=== PATIENT | male | born 1930 | race Caucasian/White ===

== ENCOUNTER 2016-04-15 06:45 | Day surgery (SDC) | payer MEDICARE, BC ==
[~2016-04-15 06:45] MED LIST: Dextrose 5%-Lactated Ringers 1,000 ML IV SCH
[2016-04-15] MEDS ORDERED: fentaNYL 100 MCG/2 ML SDV ONE (07:26)
[2016-04-15] MEDS ORDERED: Propofol 200 MG/20 ML SDV ONE (07:26)
[2016-04-15] MEDS ORDERED: Glycopyrrolate 0.2 MG/ML 2 ML SYRINGE IVPUSH ONE (08:15)
[2016-04-15 10:10] VITALS: BP 151/88
--- NOTE | 2016-04-23 10:58 | OR ---
DATE OF PROCEDURE: 04/15/2016 PREOPERATIVE DIAGNOSIS: Dysphagia likely related to stricturing at esophagogastric junction. POSTOPERATIVE DIAGNOSES: 1. 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 2. Moderate antral gastritis. OPERATIVE PROCEDURES: Esophagogastroduodenoscopy with; 1. Biopsies of antrum for CLOtest (87210). 2. Dilation of distal esophageal stricture (86066). ANESTHESIA: IV sedation. INDICATION FOR PROCEDURE: This is an 86-year-old male, presenting with some worsening dysphagia referable to his distal esophagus. He has had dilations of strictures at the EG junction previously and feels that he has developed this problem once again. He presently is on omeprazole 40 mg a day. Plan is to proceed with an upper GI endoscopy with biopsies and/or dilation as indicated. Potential risks including bleeding and perforation were discussed, and the patient wishes to proceed. DETAILS OF PROCEDURE: The patient was taken to the operating room and placed in a left lateral decubitus position. IV sedation was administered, after which the upper GI endoscope was passed orally through the length of the esophagus and into the stomach with retroflexion view of the fundus, and thereafter through the pyloric channel, and into the proximal duodenum. Findings included normal upper esophagus and esophageal body. At the EG junction, the patient had a bland stricture. This was a thin circumferential band of whitish tissue, not at all concerning for a neoplasia. The 1-cm gastroscope was able to be passed through this area without much in the way of extra diameter. Within the stomach, there was some moderate gastritis in the antrum without erosions or ulcers. The duodenum to the junction of the third and fourth portion was unremarkable. At this point, biopsies were obtained from the antrum and sent for CLOtest for H. pylori. The scope was then withdrawn, after leaving a guidewire in the stomach. Using fluoroscopic surveillance, the esophageal stricture was then dilated serially with Savary dilators of 36-Bruneian, 39-Bruneian, and 45-Bruneian size. At the 45-Bruneian size, the amount of resistance was such that we felt it would be unsafe to dilate above that level. The dilator and guidewire were then removed, and the procedure concluded. There were no evident complications. The patient's daughter was concerned about some increasing dementia. On her own reading, she has noted that PPIs are occasionally associated with that, and she would like to try switching to some medication other than a proton pump inhibitor for his reflux medication. We will, therefore, give him Zantac 300 mg q.a.m. He is instructed to contact myself or his personal physician should the reflux symptoms become worse on that otherwise somewhat low-intensity medical management. Otherwise, he and his daughter were instructed to contact me, if and when he develops problems with recurrent symptoms of stricturing. Taras Sales MD /[id number]
== END 2016-04-15 10:13 | disposition home or self-care (01) ==
LOC: JP.SDS 06:45 → EEVIPCON 11:00
PROVIDERS: ATTEND Surgery
DX: K22.2 Esophageal obstruction (principal); R13.10 Dysphagia, unspecified; K29.70 Gastritis, unspecified, without bleeding; Z86.711 Personal history of pulmonary embolism; Z79.01 Long term (current) use of anticoagulants; Z86.010 Personal history of colon polyps; N18.3 Chronic kidney disease, stage 3 (moderate); E78.5 Hyperlipidemia, unspecified; E03.9 Hypothyroidism, unspecified; G31.84 Mild cognitive impairment of uncertain or unknown etiology; N52.9 Male erectile dysfunction, unspecified; Z79.899 Other long term (current) drug therapy
CPT/HCPCS: 36415; 43239; 43248; 85610; 87081; J2704; J3010; J7042

== ENCOUNTER → 2017-06-26 | Day surgery (SDC) | payer MEDICARE, BC ==
[~2017-06-26] MED LIST changes: -Dextrose 5%-Lactated Ringers 1,000 ML IV SCH; +Sodium Chloride 0.9% 10 ML Syringe FLUSH PRN
--- NOTE | 2017-06-26 11:01 | OR ---
DATE OF PROCEDURE: 06/26/2017 POSTOPERATIVE CARE: Postoperative care will be provided mainly at the [address] [place] [address] [facility] in conjunction with [facility]. PREOPERATIVE DIAGNOSIS: Cataract, right eye. POSTOPERATIVE DIAGNOSIS: Cataract, right eye. PROCEDURE: Cataract extraction, phacoemulsification with intraocular lens placement, right eye. ANESTHESIA: Topical and intracameral. ESTIMATED BLOOD LOSS: Minimal. COMPLICATIONS: None. PATHOLOGY SPECIMENS: None. SURGICAL FINDINGS: None. INDICATION FOR PROCEDURE: The patient is an 87-year-old male with history of a visually significant cataract in the right eye, which interfered with activities of daily living. This consisted of a nuclear sclerosis cataract. Following careful discussion of the risks, benefits and alternatives to cataract extraction with intraocular lens placement including blindness and , the patient elected to proceed, and informed, written consent was obtained prior to the procedure. DESCRIPTION OF THE PROCEDURE: The patient was previously identified, and a vida placed above the right eye. All sources, including the patient, indicated that the right eye was the correct eye. The patient was subsequently taken to the operating room where standard monitors were applied. The patient was then prepped and draped in the usual sterile fashion for ophthalmic surgery. Attention was first directed at the 12 o'clock position where a paracentesis port was fashioned. Shugar solution followed by Viscoat was instilled into the eye. Attention was then directed to the 8:30 position where a triplanar incision was made in a near-clear manner using a keratome. A continuous capsulorrhexis was then made using a combination of the cystotome and Utrata forceps. Hydrodissection was achieved using a balanced salt solution, and the lens rotated nicely. Phacoemulsification was then done using a modified [id number] technique without complication. Phaco time was 25.21 CDE. The remaining cortex was removed using the irrigation/aspiration handpiece. Provisc was then instilled into the eye. A Technis lens, model [id number], at 20.5 diopters was then placed in the capsular bag using an [place] injector. The remaining viscoelastic was removed using the irrigation/aspiration forceps. All wounds were then checked and found to be watertight. The lid speculum and drapes were removed. Maxitrol ointment was placed in the patient's right eye, and the eye was shielded. The patient tolerated the procedure well. The patient was instructed to follow up tomorrow. All needle and sponge counts were correct at the end of the procedure. Isabella Arredondo MD /[id number]
[2017-06-26 11:05] VITALS: BP 164/94
== END ==
LOC: JP.SDS 08:01
PROVIDERS: ATTEND Ophthalmology
DX: H25.11 Age-related nuclear cataract, right eye (principal); I82.409 Acute embolism and thrombosis of unspecified deep veins of unspecified lower extremity; K21.9 Gastro-esophageal reflux disease without esophagitis; N18.9 Chronic kidney disease, unspecified; E03.9 Hypothyroidism, unspecified; Z88.1 Allergy status to other antibiotic agents; Z88.2 Allergy status to sulfonamides; Z88.5 Allergy status to narcotic agent; Z88.8 Allergy status to other drugs, medicaments and biological substances
CPT/HCPCS: 66984; J7050; V2632

== ENCOUNTER 2018-09-05 19:04 | Emergency (ER) | payer MEDICARE, BC ==
--- NOTE | 2018-09-05 19:32 | EDM.PDOC ---
ED HPI GENERAL MEDICAL PROBLEM - General Chief Complaint: Neuro Symptoms/Deficits Stated Complaint: WEAKNESS Time Seen by Provider: 09/05/18 19:05 Source of Information: Reports: Patient - History of Present Illness INITIAL COMMENTS - FREE TEXT/NARRATIVE: 88-year-old with history of colon cancer, DVT on Coumadin, possible atrial fibrillation presents with concerns of acute onset left leg weakness. He reports that at 5:25 this evening he sat down to have dinner. At approximately 5 :40 PM He attempted to stand up from the table and noted that his left leg was weak and not "cooperating". His also notes some mild confusion at this time and listing to the left when he stood. He is no history of prior symptoms in the past. No history of stroke or [employer] disease. He does take Coumadin for DVT. Reports a history of palpitations, he is unsure if he's been diagnosed with A. fib. He denies any headache, no vision changes. - Related Data Allergies Allergy/AdvReac Type Severity Reaction Status Date / Time glycopyrrolate [From Rodolfo] Allergy Other Verified 09/05/18 19:19 Sulfa (Sulfonamide Allergy Cannot Verified 09/05/18 19:19 Antibiotics) Remember ciprofloxacin AdvReac Stomach Verified 09/05/18 19:19 Upset doxycycline AdvReac Stomach Verified 09/05/18 19:19 Upset Home Meds: Home Meds Omeprazole 20 tab PO DAILY 09/20/13 [History] Vardenafil HCl [Levitra] 20 mg PO DAILY PRN 09/20/13 [History] Warfarin Sliding Scale [Coumadin Sliding Scale] 2.5 - 5 mg PO DAILY 09/20/13 [ History] Levothyroxine [Synthroid] 50 mcg PO DAILY 04/11/16 [History] Cyanocobalamin (Vitamin B-12) [Vitamin B-12] 5,000 mcg PO DAILY 04/15/16 [ History] Past Medical History HEENT History: Reports: Impaired Vision Other HEENT History: wears glasses Cardiovascular History: Reports: Blood Clots/VTE/DVT Respiratory History: Reports: PE Gastrointestinal History: Reports: Colon Polyp, GERD, GI Bleed Genitourinary History: Reports: Prostate Disorder, Renal Disease Neurological History: Reports: Concussion Psychiatric History: Reports: Dementia Endocrine/Metabolic History: Reports: Hypothyroidism Hematologic History: Reports: Anticoagulation Therapy, Blood Transfusion(s) - Infectious Disease History Infectious Disease History: Reports: Chicken Pox, Measles - Past Surgical History HEENT Surgical History: Reports: Cataract Surgery, Oral Surgery Cardiovascular Surgical History: Reports: None Respiratory Surgical History: Reports: None GI Surgical History: Reports: Cholecystectomy, EGD, Esophageal Dilatation, Hernia, Inguinal Social & Family History - Family History Family Medical History: Noncontributory - Tobacco Use Smoking Status *Q: Never Smoker - Caffeine Use Caffeine Use: Reports: Coffee - Recreational Drug Use Recreational Drug Use: No ED ROS GENERAL - Review of Systems Review Of Systems: See Below Constitutional: Reports: No Symptoms HEENT: Reports: No Symptoms Respiratory: Reports: No Symptoms Cardiovascular: Reports: No Symptoms Endocrine: Reports: No Symptoms GI/Abdominal: Reports: No Symptoms : Reports: No Symptoms Musculoskeletal: Reports: No Symptoms Skin: Reports: No Symptoms Neurological: Reports: Weakness, Gait Disturbance, Other. Denies: Headache, Numbness, Change in Speech Psychiatric: Reports: No Symptoms Hematologic/Lymphatic: Reports: No Symptoms Immunologic: Reports: No Symptoms ED EXAM, NEURO - Physical Exam Exam: See Below Exam Limited By: No Limitations General Appearance: Alert, No Apparent Distress Ears: Normal External Exam Nose: Normal Inspection Throat/Mouth: Normal Inspection Head Exam: Atraumatic Neck: Normal Inspection Respiratory/Chest: No Respiratory Distress, Lungs Clear Cardiovascular: Regular Rate, Rhythm GI/Abdominal: Soft, Non-Tender Neurological: Alert, Normal Mood/Affect, Other (Speech is fluid. No facial droop. Visual estrada grossly intact. Left arm weakness and mild pronator drift noted. Left leg drifts to bed < 5 seconds. Sensation and finger-nose intact. ) Course - Vital Signs Last Recorded V/S: Last Vital Signs Temp 36.9 C 09/05/18 19:21 Pulse 60 09/05/18 19:21 Resp 13 09/05/18 19:21 BP 173/76 H 09/05/18 19:21 Pulse Ox 97 09/05/18 19:21 - Orders/Labs/Meds Orders: Active Orders 24 hr Category Date Time Status EKG Documentation Completion [RC] ASDIRECTED Care 09/05/18 19:25 Active Ang Head [CT] Stat Exams 09/05/18 19:19 Stop Req Ang Neck [CT] Stat Exams 09/05/18 19:19 Stop Req Head wo Cont [CT] Stat Exams 09/05/18 19:19 Taken EKG 12 Lead [EK] Routine Ther 09/05/18 19:25 Ordered Labs: Laboratory Tests 09/05/18 09/05/18 09/05/18 Range/Units 19:46 19:46 19:46 WBC 5.2 (4.5-11.0) K/uL RBC 3.91 L (4.30-5.90) M/uL Hgb 11.5 L (12.0-15.0) g/dL Hct 36.7 L (40.0-54.0) % MCV 94 (80-98) fL MCH 29 (27-31) pg MCHC 31 L (32-36) % Plt Count 180 (150-400) K/uL PT 20.3 H (9.5-12.0) sec INR 1.95 H (0.80-1.20) Sodium 142 (140-148) mmol/L Potassium 4.1 (3.6-5.2) mmol/L Chloride 107 (100-108) mmol/L Carbon Dioxide 27 (21-32) mmol/L Anion Gap 8.5 (5.0-14.0) mmol/L BUN 19 H (7-18) mg/dL Creatinine 1.9 H (0.8-1.3) mg/dL Est Cr Clr Drug Dosing 27.75 mL/min Estimated GFR (MDRD) 34 L (>60) Glucose 105 (74-106) mg/dL Calcium 8.2 L (8.5-10.1) mg/dL - Re-Assessments/Exams Free Text/Narrative Re-Assessment/Exam: 88 yo presents with concerns of left sided weakness. Noted to have to left sided drift of upper and lower extremities. NIHSS otherwise unremarkable, total score of 3. Consistent with acute stroke Head CT negative for hemorrhage Labs with Cr 1.9 (known CKD), INR 1.95. Discussed with [facility] neurology. Agreement not tPA candidate. Vitals remains acceptable. ASA to be administered. EKG with NSR, possible hx of PAF Being transferred to [facility]. 09/05/18 20:34 Departure - Departure Time of Disposition: 20:30 Disposition: DC/Tfer to Acute Hospital 02 Condition: Good Clinical Impression: Acute ischemic stroke - Discharge Information Referrals: Naren Madsen MD [Primary Care Provider] - Forms: ED Department Discharge - My Orders Last 24 Hours: My Active Orders 09/05/18 19:19 Ang Head [CT] Stat Ang Neck [CT] Stat Head wo Cont [CT] Stat 09/05/18 19:25 EKG Documentation Completion [RC] ASDIRECTED EKG 12 Lead [EK] Routine - Assessment/Plan Last 24 Hours: My Active Orders 09/05/18 19:19 Ang Head [CT] Stat Ang Neck [CT] Stat Head wo Cont [CT] Stat 09/05/18 19:25 EKG Documentation Completion [RC] ASDIRECTED EKG 12 Lead [EK] Routine
[2018-09-05] MEDS ORDERED: Aspirin 325 MG Tab.EC PO ONE (20:37)
--- NOTE | 2018-09-05 20:39 | CRLCT ---
INDICATION: Left side weakness TECHNIQUE: CT Head without i.v. contrast. COMPARISON: None FINDINGS: CSF space: Unremarkable for age. Brain: No evidence of mass, acute infarction or hemorrhage is seen. No mass-effect or midline shift is seen. Mild diffuse cortical atrophy is noted. The brain parenchyma is otherwise normal in appearance with preservation of the gonzalez-white matter junction. Calvarium: The visualized paranasal sinuses are well aerated. The mastoid air cells are clear. The visualized orbits are grossly unremarkable. The calvarium is unremarkable in appearance with no fractures identified. IMPRESSION: 1. No evidence of acute infarction, intracranial hemorrhage, or mass-effect seen. The findings were discussed with Dr. Witt at 8:36 PM. Please note that all CT scans at this facility use dose modulation, iterative reconstruction, and/or weight-based dosing when appropriate to reduce radiation dose to as low as reasonably achievable. Dictated by: Abhijit Johnson MD @ 09/05/2018 20:36:28 (Electronically Signed)
[2018-09-05] MEDS ORDERED: Aspirin 81 MG Tab.Chew PO ONE (20:47)
[2018-09-05] MEDS ORDERED: Aspirin 81 MG Tab.Chew ONE (20:49)
[2018-09-05 20:58] VITALS: BP 166/68; PULSE 61
== END 2018-09-05 21:39 ==
LOC: JP.ED 19:04
DX: I63.9 Cerebral infarction, unspecified (principal); G83.24 Monoplegia of upper limb affecting left nondominant side; K21.9 Gastro-esophageal reflux disease without esophagitis; E03.9 Hypothyroidism, unspecified; F03.90 Unspecified dementia, unspecified severity, without behavioral disturbance, psychotic disturbance, mood disturbance, and anxiety; Z79.899 Other long term (current) drug therapy; Z88.1 Allergy status to other antibiotic agents; Z88.2 Allergy status to sulfonamides; Z88.8 Allergy status to other drugs, medicaments and biological substances; Z86.718 Personal history of other venous thrombosis and embolism; Z79.01 Long term (current) use of anticoagulants; Z85.038 Personal history of other malignant neoplasm of large intestine; Z98.49 Cataract extraction status, unspecified eye; Z98.890 Other specified postprocedural states; Z90.49 Acquired absence of other specified parts of digestive tract
CPT/HCPCS: 36415; 70450; 80048; 85027; 85610; 93005; 99285; A9270; 93010

== ENCOUNTER 2018-09-12 19:33 | Inpatient (IN) | payer MEDICARE, BC ==
[2018-09-12] MEDS ORDERED: Lactated Ringers 1,000 ML IV SCH (20:30)
--- NOTE | 2018-09-12 20:31 | EDM.PDOC ---
ED HPI GENERAL MEDICAL PROBLEM - General Chief Complaint: Gastrointestinal Problem Stated Complaint: VOMITING Time Seen by Provider: 09/12/18 20:05 Source of Information: Reports: Patient, Family, Old Records, RN History Limitations: Reports: No Limitations - History of Present Illness INITIAL COMMENTS - FREE TEXT/NARRATIVE: 88 yo male is brought in by his today for recurrent vomiting. States can't keep anything down. Shortly after attempting to swallow he vomits. Can't keep any of his meds down. Was here earlier today and had EGD with dilatation per Shamika who found food in the esophagus. [facility] with orders for a full liquid diet. Unfortunately, he is not able to even keep this down now. 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 INR earlier today was still therapeutic. Was sent out also in Augmentin due to a concern for aspiration pneumonia, CXR earlier today was unremarkable. He denies cough or SOB. No fever or chills. A UA was not done this morning when seen. Onset: Gradual Onset Date: 09/09/18 Duration: Day(s):, Constant Location: Reports: Abdomen Quality: Reports: Other (no pain) Severity: Moderate Improves with: Reports: Other (not eating or drinking) Worsens with: Reports: Eating (or drinking) Context: Reports: Other (See HPI and ER note from earlier today.) Associated Symptoms: Reports: Nausea/Vomiting (no nausea.) Treatments WAYS OPERATOR: Reports: Other (see below) Other Treatments WAYS OPERATOR: none - Related Data Allergies Allergy/AdvReac Type Severity Reaction Status Date / Time glycopyrrolate [From Rodolfo] Allergy Other Verified 09/12/18 19:53 Sulfa (Sulfonamide Allergy Cannot Verified 09/12/18 19:53 Antibiotics) Remember ciprofloxacin AdvReac Stomach Verified 09/12/18 19:53 Upset doxycycline AdvReac Stomach Verified 09/12/18 19:53 Upset Home Meds: Home Meds Omeprazole 20 tab PO DAILY 09/20/13 [History] Warfarin Sliding Scale [Coumadin Sliding Scale] 2.5 - 5 mg PO DAILY 09/20/13 [ History] Levothyroxine [Synthroid] 50 mcg PO DAILY 04/11/16 [History] Magnesium Oxide 1 tab PO DAILY 09/12/18 [History] amLODIPine Besylate [Norvasc] 1 tab PO DAILY 09/12/18 [History] atorvaSTATin [Lipitor] 80 mg PO BEDTIME 09/12/18 [History] guaiFENesin [Robitussin] 1 dose PO ASDIRECTED 09/12/18 [History] Past Medical History HEENT History: Reports: Impaired Vision Other HEENT History: wears glasses Cardiovascular History: Reports: Blood Clots/VTE/DVT Respiratory History: Reports: PE Gastrointestinal History: Reports: Colon Polyp, GERD, GI Bleed Genitourinary History: Reports: Prostate Disorder, Renal Disease Neurological History: Reports: Concussion, CVA Psychiatric History: Reports: Dementia Endocrine/Metabolic History: Reports: Hypothyroidism Hematologic History: Reports: Anticoagulation Therapy, Blood Transfusion(s) Oncologic (Cancer) History: Reports: Colon - Infectious Disease History Infectious Disease History: Reports: Chicken Pox, Measles, Mumps - Past Surgical History HEENT Surgical History: Reports: Cataract Surgery, Oral Surgery GI Surgical History: Reports: Cholecystectomy, EGD, Esophageal Dilatation, Hernia, Inguinal Social & Family History - Family History Family Medical History: Noncontributory - Tobacco Use Smoking Status *Q: Never Smoker Second Hand Smoke Exposure: No - Caffeine Use Caffeine Use: Reports: Coffee - Recreational Drug Use Recreational Drug Use: No ED ROS GENERAL - Review of Systems Review Of Systems: See Below Constitutional: Reports: No Symptoms HEENT: Reports: No Symptoms Respiratory: Reports: No Symptoms Cardiovascular: Reports: No Symptoms GI/Abdominal: Reports: Vomiting. Denies: Black Stool, Bloody Stool, Constipation, Diarrhea, Distension, Hematemesis, Hematochezia, Melena, Nausea : Reports: No Symptoms Musculoskeletal: Reports: No Symptoms Skin: Reports: No Symptoms Neurological: Reports: Other (Recent CVA) Psychiatric: Reports: No Symptoms ED EXAM, GI/ABD - Physical Exam Exam: See Below Exam Limited By: No Limitations General Appearance: Alert, WD/WN, No Apparent Distress Eyes: Bilateral: Normal Appearance Ears: Normal External Exam, Normal Canal, Hearing Grossly Normal Nose: Normal Inspection, No Blood Throat/Mouth: Normal Inspection, Normal Lips, Normal Oropharynx, Normal Voice, No Airway Compromise Head: Atraumatic, Normocephalic Neck: Normal Inspection Respiratory/Chest: No Respiratory Distress, Lungs Clear, Normal Breath Sounds, No Accessory Muscle Use Cardiovascular: Regular Rate, Rhythm, No Edema GI/Abdominal Exam: Normal Bowel Sounds, Soft, Non-Tender, No Distention Back Exam: Normal Inspection. No: CVA Tenderness (R), CVA Tenderness (L) Extremities: Normal Inspection, Normal Range of Motion, Non-Tender, No Pedal Edema Neurological: Alert, Oriented, CN II-XII Intact, Normal Cognition, No Motor/ Sensory Deficits Psychiatric: Normal Affect, Normal Mood Skin Exam: Warm, Dry, Intact, Normal Color, No Rash Course - Vital Signs Text/Narrative:: Dr. Peña called @ . Dr. Wick paged @ , called back at , will see in hospital in the morning. Last Recorded V/S: Last Vital Signs Temp 36.9 C 09/12/18 19:54 Pulse 87 09/12/18 19:54 Resp 16 09/12/18 19:54 BP 174/84 H 09/12/18 19:54 Pulse Ox 96 09/12/18 19:54 - Orders/Labs/Meds Orders: Active Orders 24 hr Category Date Time Status Patient Status Manage Transfer [TRANSFER] Routine ADT 09/12/18 21:06 Active Amoxicillin/Clavulanate K [Augmentin 875 MG/125 MG] Med 09/12/18 21:15 Active 1 tab PO Q12H Lactated Ringers [Ringers, Lactated] 1,000 ml Med 09/12/18 20:30 Active IV ASDIRECTED Resuscitation Status Routine Resus Stat 09/12/18 21:10 Ordered Medication Orders Amoxicillin/Clavulanate Potassium (Augmentin 875 Mg/125 Mg) 1 tab PO Q12H [facility] Lactated Ringer's (Ringers, Lactated) 1,000 mls @ 150 mls/hr IV ASDIRECTED [facility] Last Admin: 09/12/18 20:46 Dose: 150 mls/hr Labs: Laboratory Tests 09/12/18 Range/Units 20:10 Urine Color Yellow Urine Appearance Slightly cloudy Urine pH 5.0 (4.5-8.0) Ur Specific [place] 1.010 (1.008-1.030) Urine Protein 30 H (NEGATIVE) mg/dL Urine Glucose (UA) Normal (NEGATIVE) mg/dL Urine Ketones 50 H (NEGATIVE) mg/dL Urine Occult Blood Moderate (NEGATIVE) Urine Nitrite Negative (NEGAITVE) Urine Bilirubin Negative (NEGATIVE) Urine Urobilinogen Normal (NORMAL) mg/dL Ur Leukocyte Esterase Negative (NEGATIVE) Urine RBC 0-5 (0-5) Urine WBC 0-5 (0-5) Ur Epithelial Cells Rare Amorphous Sediment Not seen Urine Bacteria Few Urine Mucus Few Meds: Medications Generic Name Dose Route Start Last Admin Trade Name Freq PRN Reason Stop Dose Admin Amoxicillin/Clavulanate Potassium 1 tab 09/12/18 21:15 Augmentin 875 Mg/125 Mg PO Q12H [facility] Lactated Ringer's 1,000 mls @ 150 mls/hr 09/12/18 20:30 09/12/18 20:46 Ringers, Lactated IV 150 mls/hr ASDIRECTED [facility] Administration Departure - Departure Time of Disposition: 21:45 Disposition: Admitted As Inpatient 66 Condition: Fair Clinical Impression: Dysphagia Qualifiers: Dysphagia type: esophageal phase Qualified Code(s): R13.10 - Dysphagia, unspecified - Discharge Information *PRESCRIPTION DRUG MONITORING PROGRAM REVIEWED*: No *COPY OF PRESCRIPTION DRUG MONITORING REPORT IN PATIENT SOL: No Referrals: Naren Madsen MD [Primary Care Provider] - Forms: ED Department Discharge - My Orders Last 24 Hours: My Active Orders 09/12/18 20:30 Lactated Ringers [Ringers, Lactated] 1,000 ml IV ASDIRECTED - Assessment/Plan Last 24 Hours: My Active Orders 09/12/18 20:30 Lactated Ringers [Ringers, Lactated] 1,000 ml IV ASDIRECTED
[2018-09-12] MEDS ORDERED: Amoxicillin/Clavulanate K 875-125 MG Tab PO SCH (21:15)
[2018-09-12] MEDS ORDERED: Polyethylene Glycol 3350 Powder 17 GM Packet PO PRN (21:53)
[2018-09-12] MEDS ORDERED: Ondansetron 4 MG/2 ML SDV IV PRN (21:53)
[2018-09-12] MEDS ORDERED: Pantoprazole 40 MG Vial IVPUSH SCH (21:53)
[2018-09-12] MEDS ORDERED: Acetaminophen 650 MG Supp RECTAL PRN (21:53)
[2018-09-12] MEDS ORDERED: Sodium Chloride 0.9% 10 ML Syringe FLUSH PRN (21:53)
--- NOTE | 2018-09-12 21:56 | PCM.HP ---
H&P History of Present Illness - General Date of Service: 09/12/18 Admit Problem/Dx: Admission Diagnosis/Problem Admission Diagnosis/Problem Dysphagia Source of Information: Patient, Family, Old Records, Provider, RN Notes Reviewed History Limitations: Reports: Altered Mental Status - History of Present Illness Initial Comments - Free Text/Narative: Mr. Awan is an 88-year-old gentleman who was admitted through the emergency department with nausea and vomiting, with underlying dehydration. He has a known history of dementia and is unable to provide a meaningful history concerning recent symptoms or review of systems. He otherwise was stable until a week ago when he experienced abrupt onset of left-sided weakness. Initially presented to the emergency department here and then was sent to [facility]. On evaluation was felt to have had CVA, symptoms improved markedly by the following day. He has mild residual weakness in the upper and lower extremity on the left and some difficulty with coordination. He was seen in [place] by speech pathology and a swallowing study was performed, which he passed without difficulty. Over the last several days is had difficulty with nausea and vomiting, he denies feeling things getting stuck in his chest. He has had a previous history of esophageal stricture. He was in the emergency department earlier today, EGD was performed by Dr. Wick with no obvious stricture formation. Dilatation was performed at the site of previous stricture just to make sure that this was not causing a problem. There was some question about possible aspiration and he was started on oral antibiotic therapy with Augmentin. He was discharged back to the longterm, since then has still been unable to keep down food with recurrent vomiting. - Related Data Allergies/Adverse Reactions: Allergies Allergy/AdvReac Type Severity Reaction Status Date / Time glycopyrrolate [From Rodolfo] Allergy Other Verified 09/12/18 19:53 Sulfa (Sulfonamide Allergy Cannot Verified 09/12/18 19:53 Antibiotics) Remember ciprofloxacin AdvReac Stomach Verified 09/12/18 19:53 Upset doxycycline AdvReac Stomach Verified 09/12/18 19:53 Upset Home Medications: Home Meds Omeprazole 20 tab PO DAILY 09/20/13 [History] Warfarin Sliding Scale [Coumadin Sliding Scale] 2.5 - 5 mg PO DAILY 09/20/13 [ History] Levothyroxine [Synthroid] 50 mcg PO DAILY 04/11/16 [History] Magnesium Oxide 1 tab PO DAILY 09/12/18 [History] amLODIPine Besylate [Norvasc] 1 tab PO DAILY 09/12/18 [History] atorvaSTATin [Lipitor] 80 mg PO BEDTIME 09/12/18 [History] guaiFENesin [Robitussin] 1 dose PO ASDIRECTED 09/12/18 [History] Past Medical History HEENT History: Reports: Impaired Vision Other HEENT History: wears glasses Cardiovascular History: Reports: Blood Clots/VTE/DVT Respiratory History: Reports: PE Gastrointestinal History: Reports: Colon Polyp, GERD, GI Bleed Genitourinary History: Reports: Prostate Disorder, Renal Disease Neurological History: Reports: Concussion, CVA Psychiatric History: Reports: Dementia Endocrine/Metabolic History: Reports: Hypothyroidism Hematologic History: Reports: Anticoagulation Therapy, Blood Transfusion(s) Oncologic (Cancer) History: Reports: Colon - Infectious Disease History Infectious Disease History: Reports: Chicken Pox, Measles, Mumps - Past Surgical History HEENT Surgical History: Reports: Cataract Surgery, Oral Surgery GI Surgical History: Reports: Cholecystectomy, EGD, Esophageal Dilatation, Hernia, Inguinal Social & Family History - Family History Family Medical History: Noncontributory - Tobacco Use Smoking Status *Q: Never Smoker Second Hand Smoke Exposure: No - Caffeine Use Caffeine Use: Reports: Coffee - Recreational Drug Use Recreational Drug Use: No H&P Review of Systems - Review of Systems: Review Of Systems: Unable To Obtain General: Reports: ROS unobtainable (Dementia) Exam - Exam Exam: See Below - Vital Signs Vital Signs: Last Vital Signs Temp 98.5 F 09/12/18 19:54 Pulse 87 09/12/18 19:54 Resp 16 09/12/18 19:54 BP 174/84 H 09/12/18 19:54 Pulse Ox 96 09/12/18 19:54 Weight: 185 lb - Exam Quality Assessment: DVT Prophylaxis General: Alert, Cooperative. No: Oriented HEENT: Conjunctiva Clear, Mucosa Moist & [place], Normal Nasal Septum, Posterior Pharynx Clear, Pupils Equal Neck: Supple, Trachea Midline, +2 Carotid Pulse wo Bruit Lungs: Clear to Auscultation, Normal Respiratory Effort Cardiovascular: Regular Rate, Regular Rhythm, Normal S1, Normal S2. No: Systolic Murmur, Diastolic Murmur GI/Abdominal Exam: Soft, Non-Tender, No Organomegaly, No Distention Extremities: Non-Tender, No Pedal Edema Skin: Warm, Dry, Intact Neurological: Cranial Nerves Intact, Strength Equal Bilateral, Normal Speech, Normal Tone, Sensation Intact. No: Focal Deficit Neuro Extensive - Mental Status: Alert, Oriented x3, Normal Mood/Affect, Memory Loss-Remote Events, Memory Loss-Recent Events - Patient Data Lab Results Last 24 hrs: Laboratory Results - last 24 hr 09/12/18 Range/Units 20:10 Urine Color Yellow Urine Appearance Slightly cloudy Urine pH 5.0 (4.5-8.0) Ur Specific [place] 1.010 (1.008-1.030) Urine Protein 30 H (NEGATIVE) mg/dL Urine Glucose (UA) Normal (NEGATIVE) mg/dL Urine Ketones 50 H (NEGATIVE) mg/dL Urine Occult Blood Moderate (NEGATIVE) Urine Nitrite Negative (NEGAITVE) Urine Bilirubin Negative (NEGATIVE) Urine Urobilinogen Normal (NORMAL) mg/dL Ur Leukocyte Esterase Negative (NEGATIVE) Urine RBC 0-5 (0-5) Urine WBC 0-5 (0-5) Ur Epithelial Cells Rare Amorphous Sediment Not seen Urine Bacteria Few Urine Mucus Few *Q Meaningful Use (ADM) - VTE *Q VTE Pharmacological Contraindications *Q: High INR Value - VTE Risk Assess *Q Each Risk Factor Represents 1 Point: Obesity ( BMI > 25 kg/m2) Total Score 1 Point Risk Factors: 1 Each Risk Factor Represents 2 Points: Malignancy (present or previous) Total Score 2 Point Risk Factors: 2 Each Risk Factor Represents 3 Points: Age 75 Years or Greater, History of DVT/PE Total Score 3 Point Risk Factors: 6 Each Risk Factor Represents 5 Points: Stroke, Less than 1 Month Total Score 5 Point Risk Factors: 5 Venous Thromboembolism Risk Factor Score *Q: 14 Problem List Initiated/Reviewed/Updated: Yes Orders Last 24hrs: Active Orders 24 hr Category Date Time Status Patient Status Manage Transfer [TRANSFER] Routine ADT 09/12/18 21:06 Active Amoxicillin/Clavulanate K [Augmentin 875 MG/125 MG] Med 09/12/18 21:15 Ordered 1 tab PO Q12HR Lactated Ringers [Ringers, Lactated] 1,000 ml Med 09/12/18 20:30 Active IV ASDIRECTED Resuscitation Status Routine Resus Stat 09/12/18 21:10 Ordered Medication Orders Amoxicillin/Clavulanate Potassium (Augmentin 875 Mg/125 Mg) 1 tab PO Q12H [facility] Lactated Ringer's (Ringers, Lactated) 1,000 mls @ 150 mls/hr IV ASDIRECTED [facility] Last Admin: 09/12/18 20:46 Dose: 150 mls/hr Assessment/Plan Comment:: ASSESSMENT AND PLAN NAUSEA AND VOMITING-question possible dysphagia versus other cause. Previous history of esophageal stricture. No evidence of significant stricture identified on the EGD earlier today. Question possible esophageal dysmotility. No evidence of ulcer or other significant abnormalities on EGD. Denies significant abdominal pain and has had several bowel movements today. -Nothing by mouth -IV fluids for hydration -Dr. Wick to see for follow-up in a.m. 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 CEREBROVASCULAR ACCIDENT-status post left-sided weakness last week with dramatic improvement. Mild residual left-sided weakness and discoordination. DEMENTIA MAINTENANCE ISSUES -DVT prophylaxis; current therapy with warfarin should provide adequate DVT prophylaxis -GI prophylaxis; Protonix 40 mg IV daily -Serrano catheter; not indicated -Nutrition; nothing by mouth -Nicotine dependence; not required CODE STATUS-DNR/DNI ADMISSION STATUS-patient will be admitted to inpatient status, expect at least a 2 night hospital stay for evaluation and management of problems as outlined above. At the time of this admission I do not reasonably expected evaluation and management of this problem will require more than a 96 hour hospital stay. DISPOSITION-anticipate discharge to home after the hospital stay. PRIMARY CARE PROVIDER-Dr. Madsen
[2018-09-12] MEDS: Lactated Ringers 1,000 ML IV SCH (22:53)
[2018-09-13] MEDS: Lactated Ringers 1,000 ML IV SCH (04:15)
[2018-09-13] MEDS ORDERED: Potassium Chloride Riders 40 MEQ in Premix Bag 1 BAG IV ONE (07:49)
[2018-09-13] MEDS ORDERED: Lactated Ringers 1,000 ML IV SCH (08:45)
--- NOTE | 2018-09-13 08:47 | PCM.PN ---
- General Info Date of Service: 09/13/18 Subjective Update: Mr. Awan is been stable since admission, no further episodes of vomiting although he has remained nothing by mouth. Vital signs have been stable and he has remained afebrile. Because of underlying dementia is unable to provide a meaningful history concerning symptoms or review of systems. - Patient Data Vitals - Most Recent: Last Vital Signs Temp 97.7 F 09/13/18 07:42 Pulse 96 09/13/18 07:42 Resp 16 09/13/18 07:42 BP 181/79 H 09/13/18 07:42 Pulse Ox 96 09/13/18 07:42 Weight - Most Recent: 179 lb 12.8 oz I&O - Last 24 Hours: Intake & Output 09/12/18 09/13/18 09/13/18 22:59 06:59 14:59 Intake Total 836 Balance 836 Lab Results Last 24 Hours: Laboratory Results - last 24 hr 09/12/18 09/13/18 09/13/18 Range/Units 20:10 05:11 05:11 WBC 7.8 (4.5-11.0) K/uL RBC 3.68 L (4.30-5.90) M/uL Hgb 10.9 L (12.0-15.0) g/dL Hct 33.8 L (40.0-54.0) % MCV 92 (80-98) fL MCH 30 (27-31) pg MCHC 32 (32-36) % Plt Count 161 (150-400) K/uL Neut % (Auto) 72 H (36-66) % Lymph % (Auto) 18 L (24-44) % Hall % (Auto) 10 H (2-6) % Eos % (Auto) 1 L (2-4) % Baso % (Auto) 0 (0-1) % PT 39.3 H (9.5-12.0) sec INR 3.93 H (0.80-1.20) Sodium (140-148) mmol/L Potassium (3.6-5.2) mmol/L Chloride (100-108) mmol/L Carbon Dioxide (21-32) mmol/L Anion Gap (5.0-14.0) mmol/L BUN (7-18) mg/dL Creatinine (0.8-1.3) mg/dL Est Cr Clr Drug Dosing mL/min Estimated GFR (MDRD) (>60) Glucose (74-106) mg/dL Calcium (8.5-10.1) mg/dL Urine Color Yellow Urine Appearance Slightly cloudy Urine pH 5.0 (4.5-8.0) Ur Specific [place] 1.010 (1.008-1.030) Urine Protein 30 H (NEGATIVE) mg/dL Urine Glucose (UA) Normal (NEGATIVE) mg/dL Urine Ketones 50 H (NEGATIVE) mg/dL Urine Occult Blood Moderate (NEGATIVE) Urine Nitrite Negative (NEGAITVE) Urine Bilirubin Negative (NEGATIVE) Urine Urobilinogen Normal (NORMAL) mg/dL Ur Leukocyte Esterase Negative (NEGATIVE) Urine RBC 0-5 (0-5) Urine WBC 0-5 (0-5) Ur Epithelial Cells Rare Amorphous Sediment Not seen Urine Bacteria Few Urine Mucus Few 09/13/18 Range/Units 05:11 WBC (4.5-11.0) K/uL RBC (4.30-5.90) M/uL Hgb (12.0-15.0) g/dL Hct (40.0-54.0) % MCV (80-98) fL MCH (27-31) pg MCHC (32-36) % Plt Count (150-400) K/uL Neut % (Auto) (36-66) % Lymph % (Auto) (24-44) % Hall % (Auto) (2-6) % Eos % (Auto) (2-4) % Baso % (Auto) (0-1) % PT (9.5-12.0) sec INR (0.80-1.20) Sodium 142 (140-148) mmol/L Potassium 3.4 L (3.6-5.2) mmol/L Chloride 106 (100-108) mmol/L Carbon Dioxide 27 (21-32) mmol/L Anion Gap 12.4 (5.0-14.0) mmol/L BUN 20 H (7-18) mg/dL Creatinine 1.6 H (0.8-1.3) mg/dL Est Cr Clr Drug Dosing 33.03 mL/min Estimated GFR (MDRD) 41 L (>60) Glucose 91 (74-106) mg/dL Calcium 8.7 (8.5-10.1) mg/dL Urine Color Urine Appearance Urine pH (4.5-8.0) Ur Specific [place] (1.008-1.030) Urine Protein (NEGATIVE) mg/dL Urine Glucose (UA) (NEGATIVE) mg/dL Urine Ketones (NEGATIVE) mg/dL Urine Occult Blood (NEGATIVE) Urine Nitrite (NEGAITVE) Urine Bilirubin (NEGATIVE) Urine Urobilinogen (NORMAL) mg/dL Ur Leukocyte Esterase (NEGATIVE) Urine RBC (0-5) Urine WBC (0-5) Ur Epithelial Cells Amorphous Sediment Urine Bacteria Urine Mucus Med Orders - Current: Current Medications Acetaminophen (Tylenol) 650 mg RECTAL Q4H PRN PRN Reason: Mild pain/fever Lactated Ringer's (Ringers, Lactated) 1,000 mls @ 125 mls/hr IV ASDIRECTED [facility] Last Admin: 09/13/18 04:15 Dose: 125 mls/hr Potassium Chloride 20 meq/Lidocaine HCl 2 ml/ Sodium Chloride 112 mls @ 56 mls/ hr IV Q2H [facility] Stop: 09/13/18 12:59 Ondansetron HCl (Zofran) 4 mg IV Q4H PRN PRN Reason: Nausea/Vomiting Pantoprazole Sodium (Protonix Iv) 40 mg IVPUSH BEDTIME [facility] Polyethylene Glycol (Miralax) 17 gm PO DAILY PRN PRN Reason: Constipation Sodium Chloride (Saline Flush) 10 ml FLUSH ASDIRECTED PRN PRN Reason: Keep Vein Open Discontinued Medications Amoxicillin/Clavulanate Potassium (Augmentin 875 Mg/125 Mg) 1 tab PO Q12H [facility] Last Admin: 09/12/18 21:57 Dose: 1 tab Lactated Ringer's (Ringers, Lactated) 1,000 mls @ 150 mls/hr IV ASDIRECTED [facility] Last Admin: 09/12/18 20:46 Dose: 150 mls/hr Pantoprazole Sodium (Protonix Iv) 40 mg IVPUSH Q24H [facility] Last Admin: 09/13/18 00:13 Dose: 40 mg - Exam Quality Assessment: DVT Prophylaxis General: Alert, Cooperative, No Acute Distress. No: Oriented Lungs: Clear to Auscultation, Normal Respiratory Effort Cardiovascular: Regular Rate, Regular Rhythm, No Murmurs GI/Abdominal Exam: Soft, Non-Tender, No Organomegaly, No Distention Extremities: Non-Tender, No Pedal Edema - Problem List Review Problem List Initiated/Reviewed/Updated: Yes - My Orders Last 24 Hours: My Active Orders 09/12/18 21:10 Resuscitation Status Routine 09/12/18 21:53 Patient Status [ADT] Routine Ambulate [RC] QID Height and Weight [RC] DAILY Intake and Output [RC] QSHIFT Notify Provider Vital Signs [RC] ASDIRECTED Oxygen Therapy [RC] PRN Peripheral IV Care [RC] . DIRECTED Up With Assistance [RC] ASDIRECTED Up to Chair [RC] QID VTE/DVT Education [RC] Per Unit Routine Vital Signs [RC] Q4H Acetaminophen [Tylenol] 650 mg RECTAL Q4H PRN Lactated Ringers [Ringers, Lactated] 1,000 ml IV ASDIRECTED Ondansetron [Zofran] 4 mg IV Q4H PRN Polyethylene Glycol 3350 [MiraLAX] 17 gm PO DAILY PRN Sodium Chloride 0.9% [Saline Flush] 10 ml FLUSH ASDIRECTED PRN Peripheral IV Insertion Adult [OM.PC] Routine VTE Pharmacological Contraindications [AST] Per Unit Routine 09/12/18 Dinner Nothing per Oral Now Diet [DIET] 09/13/18 07:56 Consult to Physician [CONS] Routine 09/13/18 07:57 Notify Provider Consults [RC] ASDIRECTED 09/13/18 08:45 Lactated Ringers [Ringers, Lactated] 1,000 ml IV ASDIRECTED 09/13/18 09:00 Lactobacillus Rhamnosus GG [Culturelle] 1 cap PO BID Potassium Chloride 20 meq Lidocaine 1% [Xylocaine 1%] 2 ml Sodium Chloride 0.9 % [Normal Saline] 100 ml IV Q2H 09/13/18 21:00 Pantoprazole [ProTONIX IV] 40 mg IVPUSH BEDTIME 09/14/18 05:00 BASIC METABOLIC PANEL,BMP [CHEM] Timed INR,PT,PROTHROMBIN TIME [COAG] Timed - Plan Plan:: ASSESSMENT AND PLAN NAUSEA AND VOMITING-question possible dysphagia versus other cause. Stable since admission with no further episodes of vomiting -Nothing by mouth -IV fluids for hydration, decrease IV rate to 75 mL per hour -Dr. 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 CEREBROVASCULAR ACCIDENT-status post left-sided weakness last week with dramatic improvement. Mild residual left-sided weakness and discoordination. DEMENTIA MAINTENANCE ISSUES -DVT prophylaxis; current therapy with warfarin should provide adequate DVT prophylaxis -GI prophylaxis; Protonix 40 mg IV daily -Serrano catheter; not indicated -Nutrition; nothing by mouth -Nicotine dependence; not required CODE STATUS-DNR/DNI ADMISSION STATUS-patient will be admitted to inpatient status, expect at least a 2 night hospital stay for evaluation and management of problems as outlined above. At the time of this admission I do not reasonably expected evaluation and management of this problem will require more than a 96 hour hospital stay. DISPOSITION-anticipate discharge to home after the hospital stay. PRIMARY CARE PROVIDER-Dr. Madsen
[2018-09-13] MEDS ORDERED: Amoxicillin/Clavulanate K 875-125 MG Tab PO SCH (09:00)
[2018-09-13] MEDS: Lactobacillus Rhamnosus GG (Probiotic) Cap PO SCH ×2 (10:02→20:08)
[2018-09-13] MEDS: Potassium Chloride 20 MEQ, Lidocaine 1% 2 ML in Sodium Chloride 0.9% 100 ML IV SCH ×2 (10:02→12:23)
[2018-09-13] MEDS: Amoxicillin/Clavulanate K 400-57 MG/5 ML Susp 100 ML Bottle PO SCH ×2 (10:03→20:08)
--- NOTE | 2018-09-13 11:32 | PN ---
DATE OF SERVICE: 09/13/2018 SUBJECTIVE: Not much change from yesterday. Still has a mild cough. He is still n.p.o. Medicine Service continues to manage his medical conditions. OBJECTIVE: VITAL SIGNS: Stable. CARDIOVASCULAR: Regular in rhythm and rate. RESPIRATORY: Poor inspirations bilaterally. ASSESSMENT AND PLAN: The patient does have dysphagia, most likely secondary to stroke. We will ask the radiologist to evaluate him for a swallow study in the a.m. As far as the remainder of his medical conditions, the Hospitalist Service will continue to monitor the patient and adjust accordingly. No plans for surgical intervention at this moment. Jeanmarie Wick MD /[id number]
[2018-09-13] MEDS: amLODIPine 5 MG Tab PO SCH (20:08)
[2018-09-13] MEDS: Pantoprazole 40 MG Vial IVPUSH SCH (20:08)
[2018-09-14] MEDS: Amoxicillin/Clavulanate K 400-57 MG/5 ML Susp 100 ML Bottle PO SCH (08:44)
[2018-09-14] MEDS: Lactobacillus Rhamnosus GG (Probiotic) Cap PO SCH (08:44)
[2018-09-14] MEDS: amLODIPine 5 MG Tab PO SCH (08:45)
--- NOTE | 2018-09-14 10:44 | PCM.PN ---
- General Info Date of Service: 09/14/18 Subjective Update: No acute events overnight. The patient did have a prolonged coughing episode that started after trying to take his Augmentin. He is not coughing this morning and does not feel short of breath. He does not want to take any of his pills because of the severity of the coughing last night. He has not had any fevers. He has not required supplemental oxygen. INR remains elevated despite no warfarin for several days. Radiologist will be available for swallow study tomorrow. Family and patient are interested in a feeding tube to help with his deficits following the recent cerebrovascular accident. Functional Status: Reports: Pain Controlled. Denies: Tolerating Diet - Review of Systems General: Denies: Fever - Patient Data Vitals - Most Recent: Last Vital Signs Temp 36.3 C 09/14/18 07:23 Pulse 75 09/14/18 07:23 Resp 18 09/14/18 07:23 BP 189/82 H 09/14/18 08:45 Pulse Ox 97 09/14/18 07:23 Weight - Most Recent: 81.556 kg I&O - Last 24 Hours: Intake & Output 09/13/18 09/14/18 09/14/18 22:59 06:59 14:59 Intake Total 1078 734 Balance 1078 734 Lab Results Last 24 Hours: Laboratory Results - last 24 hr 09/14/18 09/14/18 Range/Units 04:20 04:20 PT 37.6 H (9.5-12.0) sec INR 3.75 H (0.80-1.20) Sodium 142 (140-148) mmol/L Potassium 3.5 L (3.6-5.2) mmol/L Chloride 106 (100-108) mmol/L Carbon Dioxide 26 (21-32) mmol/L Anion Gap 13.5 (5.0-14.0) mmol/L BUN 18 (7-18) mg/dL Creatinine 1.4 H (0.8-1.3) mg/dL Est Cr Clr Drug Dosing 37.75 mL/min Estimated GFR (MDRD) 48 L (>60) Glucose 74 (74-106) mg/dL Calcium 8.5 (8.5-10.1) mg/dL Med Orders - Current: Current Medications Acetaminophen (Tylenol) 650 mg RECTAL Q4H PRN PRN Reason: Mild pain/fever Amlodipine Besylate (Norvasc) 2.[address] [facility] Last Admin: 09/14/18 08:45 Dose: Not Given Ondansetron HCl (Zofran) 4 mg IV Q4H PRN PRN Reason: Nausea/Vomiting Last Admin: 09/13/18 20:15 Dose: 4 mg Pantoprazole Sodium (Protonix Iv) [address] [facility] Last Admin: 09/13/18 20:08 Dose: 40 mg Polyethylene Glycol (Miralax) 17 gm PO DAILY PRN PRN Reason: Constipation Sodium Chloride (Saline Flush) 10 ml FLUSH ASDIRECTED PRN PRN Reason: Keep Vein Open Discontinued Medications Amoxicillin/Clavulanate Potassium (Augmentin 875 Mg/125 Mg) [address] [facility] Last Admin: 09/12/18 21:57 Dose: 1 tab Amoxicillin/Clavulanate Potassium (Augmentin 400 Mg/5 Ml Susp) [address] [facility] Last Admin: 09/14/18 08:44 Dose: Not Given Lactated Ringer's (Ringers, Lactated) 1,000 mls @ 150 mls/hr IV ASDIRECTED [facility] Last Admin: 09/12/18 20:46 Dose: 150 mls/hr Lactated Ringer's (Ringers, Lactated) 1,000 mls @ 125 mls/hr IV ASDIRECTED [facility] Last Admin: 09/13/18 04:15 Dose: 125 mls/hr Potassium Chloride 20 meq/Lidocaine HCl 2 ml/ Sodium Chloride 112 mls @ 56 mls/ hr IV Q2H [facility] Stop: 09/13/18 12:59 Last Admin: 09/13/18 12:23 Dose: 56 mls/hr Lactated Ringer's (Ringers, Lactated) 1,000 mls @ 75 mls/hr IV ASDIRECTED [facility] Last Admin: 09/14/18 04:47 Dose: 75 mls/hr Lactobacillus Rhamnosus (Culturelle) [address] [facility] Last Admin: 09/14/18 08:44 Dose: Not Given Pantoprazole Sodium (Protonix Iv) [address] [facility] Last Admin: 09/13/18 00:13 Dose: 40 mg - Exam Quality Assessment: No: Supplemental Oxygen General: Alert, Cooperative, No Acute Distress Lungs: Clear to Auscultation, Normal Respiratory Effort. No: Crackles Cardiovascular: Regular Rate, Regular Rhythm GI/Abdominal Exam: Soft, No Distention Extremities: No Pedal Edema Psy/Mental Status: Alert, Normal Affect - Problem List Review Problem List Initiated/Reviewed/Updated: Yes - My Orders Last 24 Hours: My Active Orders 09/14/18 10:43 Phytonadione [AquaMephyton] 10 mg Sodium Chloride 0.9% [Normal Saline] 50 ml IV NOW 09/14/18 10:45 Dextrose 5%-Lactated Ringers with KCl 20 mEq @ 75 mL/Hr (1000 mL) Dextrose 5%- Lact Ringers w/KCl [D5 LR with 20 mEq KCl] 1,000 ml IV ASDIRECTED Potassium Chloride 20 MEQ,Lidocaine 1% 2 ML IN 100ML NS @ 50 MLS/HR Potassium Chloride 20 meq Lidocaine 1% [Xylocaine 1%] 2 ml Sodium Chloride 0.9% [Normal Saline] 100 ml IV Q2H 09/15/18 05:00 BASIC METABOLIC PANEL,BMP [CHEM] Timed INR,PT,PROTHROMBIN TIME [COAG] Timed - Plan Plan:: ASSESSMENT AND PLAN 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 No anatomic abnormalities noted with EGD. Swallow study planned for tomorrow. Patient and family are interested in a feeding tube. -Nothing by mouth -IV fluids for hydration -Swallow studies tomorrow -Reverse INR and discuss feeding tube placement for tomorrow HISTORY OF DEEP VEIN THROMBOSIS - history of factor V Leiden, on long-term oral anticoagulation with warfarin, INR remains supratherapeutic. Patient and family are interested in switching to one of the new novel oral anticoagulants. -Discontinue warfarin -Vitamin K 10 mg 1 today -INR in the morning -Consider apixaban to replace warfarin after feeding tube placed CEREBROVASCULAR ACCIDENT - status post left-sided weakness last week with dramatic improvement. Mild residual left-sided weakness and discoordination. Dysphasia suspected to be related to the CVA as discussed above. Blood pressure is moderately elevated at this time but unable to take oral medications. -Medical management as indicated DEMENTIA - no behavior issues at this time. MAINTENANCE ISSUES -DVT prophylaxis; current therapy with warfarin should provide adequate DVT prophylaxis -GI prophylaxis; Protonix 40 mg IV daily -Serrano catheter; not indicated -Nutrition; nothing by mouth DISPOSITION - anticipate discharge to [facility] after the hospital stay. Bud Wright MD
[2018-09-14] MEDS ORDERED: Potassium Chloride 20 MEQ, Lidocaine 1% 2 ML in Sodium Chloride 0.9% 100 ML IV SCH (11:00)
[2018-09-14] MEDS ORDERED: Phytonadione 10 MG in Sodium Chloride 0.9% 50 ML IV ONE (11:00)
[2018-09-14] MEDS: Dextrose 5%-Lact Ringers w/KCl 1,000 ML IV SCH (12:43)
[2018-09-14] MEDS: Pantoprazole 40 MG Vial IVPUSH SCH (21:26)
[2018-09-15] MEDS: Dextrose 5%-Lact Ringers w/KCl 1,000 ML IV SCH ×2 (02:01→16:07)
[2018-09-15] MEDS: Potassium Chloride 20 MEQ, Lidocaine 1% 2 ML in Sodium Chloride 0.9% 100 ML IV SCH ×2 (10:51→13:28)
--- NOTE | 2018-09-15 12:44 | PCM.PN ---
- General Info Date of Service: 09/15/18 Subjective Update: There were no acute events overnight. The patient has remained nothing by mouth status. He does not complain of shortness of breath or cough. No complaints of abdominal pain. No fevers. Swallow study planned for later in the day. Patient and his continue to be interested in feeding tube placement while he recovers from his stroke. Functional Status: Reports: Pain Controlled - Review of Systems General: Denies: Fever - Patient Data Vitals - Most Recent: Last Vital Signs Temp 36.6 C 09/15/18 12:12 Pulse 77 09/15/18 12:12 Resp 16 09/15/18 12:12 BP 181/86 H 09/15/18 12:12 Pulse Ox 98 09/15/18 12:12 Weight - Most Recent: 81.556 kg I&O - Last 24 Hours: Intake & Output 09/14/18 09/15/18 09/15/18 22:59 06:59 14:59 Intake Total 572 769 Output Total 250 Balance 572 519 Lab Results Last 24 Hours: Laboratory Results - last 24 hr 09/15/18 09/15/18 Range/Units 05:13 05:13 PT 13.0 H (9.5-12.0) sec INR 1.22 H D (0.80-1.20) Sodium 141 (140-148) mmol/L Potassium 3.5 L (3.6-5.2) mmol/L Chloride 104 (100-108) mmol/L Carbon Dioxide 29 (21-32) mmol/L Anion Gap 11.5 (5.0-14.0) mmol/L BUN 16 (7-18) mg/dL Creatinine 1.5 H (0.8-1.3) mg/dL Est Cr Clr Drug Dosing 35.23 mL/min Estimated GFR (MDRD) 44 L (>60) Glucose 121 H (74-106) mg/dL Calcium 8.6 (8.5-10.1) mg/dL Med Orders - Current: Current Medications Acetaminophen (Tylenol) 650 mg RECTAL Q4H PRN PRN Reason: Mild pain/fever Amlodipine Besylate (Norvasc) 2.5 mg PO DAILY [facility] Last Admin: 09/14/18 08:45 Dose: Not Given Potassium Cl/Dextrose/Lact Ringer's (D5 Lr With 20 Meq Kcl) 1,000 mls @ 75 mls/ hr IV ASDIRECTED [facility] Last Admin: 09/15/18 02:01 Dose: 75 mls/hr Potassium Chloride 20 meq/Lidocaine HCl 2 ml/ Sodium Chloride 112 mls @ 56 mls/ hr IV Q2H [facility] Stop: 09/15/18 14:29 Last Admin: 09/15/18 10:51 Dose: 56 mls/hr Ondansetron HCl (Zofran) 4 mg IV Q4H PRN PRN Reason: Nausea/Vomiting Last Admin: 09/13/18 20:15 Dose: 4 mg Pantoprazole Sodium (Protonix Iv) 40 mg IVPUSH BEDTIME [facility] Last Admin: 09/14/18 21:26 Dose: 40 mg Polyethylene Glycol (Miralax) 17 gm PO DAILY PRN PRN Reason: Constipation Sodium Chloride (Saline Flush) 10 ml FLUSH ASDIRECTED PRN PRN Reason: Keep Vein Open Discontinued Medications Amoxicillin/Clavulanate Potassium (Augmentin 875 Mg/125 Mg) 1 tab PO Q12H [facility] Last Admin: 09/12/18 21:57 Dose: 1 tab Amoxicillin/Clavulanate Potassium (Augmentin 400 Mg/5 Ml Susp) 875 mg PO BID [facility] Last Admin: 09/14/18 08:44 Dose: Not Given Lactated Ringer's (Ringers, Lactated) 1,000 mls @ 150 mls/hr IV ASDIRECTED [facility] Last Admin: 09/12/18 20:46 Dose: 150 mls/hr Lactated Ringer's (Ringers, Lactated) 1,000 mls @ 125 mls/hr IV ASDIRECTED [facility] Last Admin: 09/13/18 04:15 Dose: 125 mls/hr Potassium Chloride 20 meq/Lidocaine HCl 2 ml/ Sodium Chloride 112 mls @ 56 mls/ hr IV Q2H [facility] Stop: 09/13/18 12:59 Last Admin: 09/13/18 12:23 Dose: 56 mls/hr Lactated Ringer's (Ringers, Lactated) 1,000 mls @ 75 mls/hr IV ASDIRECTED [facility] Last Admin: 09/14/18 04:47 Dose: 75 mls/hr Phytonadione 10 mg/ Sodium (Chloride) 51 mls @ 100 mls/hr IV NOW ONE Stop: 09/14/18 11:30 Last Admin: 09/14/18 11:44 Dose: 100 mls/hr Potassium Chloride 20 meq/Lidocaine HCl 2 ml/ Sodium Chloride 112 mls @ 50 mls/ hr IV Q2H [facility] Stop: 09/14/18 12:59 Last Admin: 09/14/18 11:38 Dose: 50 mls/hr Lactobacillus Rhamnosus (Culturelle) 1 cap PO BID [facility] Last Admin: 09/14/18 08:44 Dose: Not Given Pantoprazole Sodium (Protonix Iv) 40 mg IVPUSH Q24H [facility] Last Admin: 09/13/18 00:13 Dose: 40 mg - Exam Quality Assessment: No: Supplemental Oxygen General: Alert, Cooperative, No Acute Distress. No: Oriented Lungs: Clear to Auscultation, Normal Respiratory Effort Cardiovascular: Regular Rate, Regular Rhythm GI/Abdominal Exam: Normal Bowel Sounds, Soft, Non-Tender, No Distention Extremities: No Pedal Edema Psy/Mental Status: Alert, Normal Affect - Problem List Review Problem List Initiated/Reviewed/Updated: Yes - My Orders Last 24 Hours: My Active Orders 09/15/18 10:30 Potassium Chloride 20 meq Lidocaine 1% [Xylocaine 1%] 2 ml Sodium Chloride 0.9 % [Normal Saline] 100 ml IV Q2H 09/16/18 05:00 BASIC METABOLIC PANEL,BMP [CHEM] Timed INR,PT,PROTHROMBIN TIME [COAG] Timed - Plan Plan:: ASSESSMENT AND PLAN 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 No anatomic abnormalities noted with EGD. Swallow study planned for later today. Patient and family are interested in a feeding tube. -Nothing by mouth -IV fluids for hydration -Swallow study today -Feeding tube placement, possibly later today -Plan to start tube feedings tomorrow if feeding tube placed today HISTORY OF DEEP VEIN THROMBOSIS - history of factor V Leiden, on long-term oral anticoagulation with warfarin, INR normalized with vitamin K yesterday. Patient and family are interested in switching to one of the new novel oral anticoagulants. -Consider apixaban to replace warfarin after feeding tube placed CEREBROVASCULAR ACCIDENT - status post left-sided weakness last week with dramatic improvement. Mild residual left-sided weakness and discoordination. Dysphasia suspected to be related to the CVA as discussed above. Blood pressure is moderately elevated at this time but unable to take oral medications. -Restart amlodipine when able after feeding tube placed DEMENTIA - no behavior issues at this time. MAINTENANCE ISSUES -DVT prophylaxis; start DOAC tomorrow -GI prophylaxis; Protonix 40 mg IV daily -Serrano catheter; not indicated -Nutrition; nothing by mouth DISPOSITION - anticipate discharge to [facility] after the hospital stay. Bud Wright MD
[2018-09-15] MEDS ORDERED: Barium Sulfate 98% Powder for Susp 340 GM Bottle PO PRN (13:12)
[2018-09-15] MEDS ORDERED: Barium Sulfate 60% w/w Esophageal Crm 454 GM Tube PO PRN (13:12)
--- NOTE | 2018-09-15 15:30 | CR ---
Swallowing Function w Video CLINICAL HISTORY: Dysphagia, previous CVA FINDINGS: Patient swallowed various detection barium in liquids and solids. There was some early spillage with thin and thick liquids. There is no penetration the airway or aspiration. Patient had some mild oral phase difficulties with the solids. On the lower margin of the visible cervical esophagus there was suggestion of a posterior filling defect. This could represent a prominent cricopharyngeal muscle. There is increased uptake in a could have a similar appearance. IMPRESSION: Medial rehabilitation swallow as above. There is no evidence of aspiration or penetration airway Esophagram recommended to evaluate the cervical esophagus for possible posterior filling defect
[2018-09-15] MEDS: Pantoprazole 40 MG Vial IVPUSH SCH (21:09)
[2018-09-16] MEDS: Dextrose 5%-Lact Ringers w/KCl 1,000 ML IV SCH ×2 (06:14→20:22)
[2018-09-16] MEDS ORDERED: Propofol 200 MG/20 ML SDV ONE (06:56)
[2018-09-16] MEDS ORDERED: Sodium Chloride 0.9% 500 ML ONE (07:14)
[2018-09-16] MEDS: amLODIPine 5 MG Tab PO SCH (09:33)
--- NOTE | 2018-09-16 10:54 | PCM.PN ---
- General Info Date of Service: 09/16/18 Subjective Update: There were no acute events overnight. No fevers. No episodes of coughing or choking. Patient did well with the video swallow study yesterday and there is no evidence for aspiration. Feeding tube was placed this morning without difficulty. points of abdominal pain or nausea at this time. Functional Status: Reports: Pain Controlled - Patient Data Vitals - Most Recent: Last Vital Signs Temp 36.3 C 09/16/18 08:25 Pulse 66 09/16/18 09:33 Resp 16 09/16/18 09:12 BP 168/76 H 09/16/18 09:33 Pulse Ox 94 L 09/16/18 09:33 Weight - Most Recent: 81.556 kg I&O - Last 24 Hours: Intake & Output 09/15/18 09/16/18 09/16/18 22:59 06:59 14:59 Intake Total 1065 802 Balance 1065 802 Lab Results Last 24 Hours: Laboratory Results - last 24 hr 09/16/18 09/16/18 Range/Units 04:50 04:50 PT 11.8 (9.5-12.0) sec INR 1.10 (0.80-1.20) Sodium 143 (140-148) mmol/L Potassium 3.8 (3.6-5.2) mmol/L Chloride 106 (100-108) mmol/L Carbon Dioxide 28 (21-32) mmol/L Anion Gap 8.8 (5.0-14.0) mmol/L BUN 12 (7-18) mg/dL Creatinine 1.6 H (0.8-1.3) mg/dL Est Cr Clr Drug Dosing 33.03 mL/min Estimated GFR (MDRD) 41 L (>60) Glucose 119 H (74-106) mg/dL Calcium 8.6 (8.5-10.1) mg/dL Med Orders - Current: Current Medications Acetaminophen (Tylenol) 650 mg RECTAL Q4H PRN PRN Reason: Mild pain/fever Amlodipine Besylate (Norvasc) 2.5 mg PO DAILY [facility] Last Admin: 09/16/18 09:33 Dose: Not Given Barium Sulfate (E-Z-Paste) 25 gm PO . DIRECTED PRN PRN Reason: RADIOLOGY EXAM Stop: 09/16/18 13:13 Last Admin: 09/15/18 14:15 Dose: 25 gm Barium Sulfate (E-Z-Hd) 50 gm PO . DIRECTED PRN PRN Reason: RADIOLOGY EXAM Stop: 09/16/18 13:13 Last Admin: 09/15/18 14:15 Dose: 50 gm Potassium Cl/Dextrose/Lact Ringer's (D5 Lr With 20 Meq Kcl) 1,000 mls @ 75 mls/ hr IV ASDIRECTED [facility] Last Admin: 09/16/18 06:14 Dose: 75 mls/hr Ondansetron HCl (Zofran) 4 mg IV Q4H PRN PRN Reason: Nausea/Vomiting Last Admin: 09/13/18 20:15 Dose: 4 mg Pantoprazole Sodium (Protonix Iv) 40 mg IVPUSH BEDTIME [facility] Last Admin: 09/15/18 21:09 Dose: 40 mg Polyethylene Glycol (Miralax) 17 gm PO DAILY PRN PRN Reason: Constipation Sodium Chloride (Saline Flush) 10 ml FLUSH ASDIRECTED PRN PRN Reason: Keep Vein Open Discontinued Medications Amoxicillin/Clavulanate Potassium (Augmentin 875 Mg/125 Mg) 1 tab PO Q12H [facility] Last Admin: 09/12/18 21:57 Dose: 1 tab Amoxicillin/Clavulanate Potassium (Augmentin 400 Mg/5 Ml Susp) 875 mg PO BID [facility] Last Admin: 09/14/18 08:44 Dose: Not Given Lactated Ringer's (Ringers, Lactated) 1,000 mls @ 150 mls/hr IV ASDIRECTED [facility] Last Admin: 09/12/18 20:46 Dose: 150 mls/hr Lactated Ringer's (Ringers, Lactated) 1,000 mls @ 125 mls/hr IV ASDIRECTED [facility] Last Admin: 09/13/18 04:15 Dose: 125 mls/hr Potassium Chloride 20 meq/Lidocaine HCl 2 ml/ Sodium Chloride 112 mls @ 56 mls/ hr IV Q2H [facility] Stop: 09/13/18 12:59 Last Admin: 09/13/18 12:23 Dose: 56 mls/hr Lactated Ringer's (Ringers, Lactated) 1,000 mls @ 75 mls/hr IV ASDIRECTED [facility] Last Admin: 09/14/18 04:47 Dose: 75 mls/hr Phytonadione 10 mg/ Sodium (Chloride) 51 mls @ 100 mls/hr IV NOW ONE Stop: 09/14/18 11:30 Last Admin: 09/14/18 11:44 Dose: 100 mls/hr Potassium Chloride 20 meq/Lidocaine HCl 2 ml/ Sodium Chloride 112 mls @ 50 mls/ hr IV Q2H [facility] Stop: 09/14/18 12:59 Last Admin: 09/14/18 11:38 Dose: 50 mls/hr Potassium Chloride 20 meq/Lidocaine HCl 2 ml/ Sodium Chloride 112 mls @ 56 mls/ hr IV Q2H [facility] Stop: 09/15/18 14:29 Last Admin: 09/15/18 13:28 Dose: 56 mls/hr Sodium Chloride (Normal Saline) Confirm Administered Dose 500 mls @ as directed .ROUTE .[facility] [facility] Stop: 09/16/18 07:15 Lactobacillus Rhamnosus (Culturelle) 1 cap PO BID [facility] Last Admin: 09/14/18 08:44 Dose: Not Given Pantoprazole Sodium (Protonix Iv) 40 mg IVPUSH Q24H [facility] Last Admin: 09/13/18 00:13 Dose: 40 mg Propofol (Diprivan 20 Ml) Confirm Administered Dose 200 mg .ROUTE .STK-[facility] ONE Stop: 09/16/18 06:57 - Exam Quality Assessment: No: Supplemental Oxygen General: Alert, Cooperative, No Acute Distress Lungs: Normal Respiratory Effort GI/Abdominal Exam: Soft, No Distention, Other (Gastrostomy tube in left upper abdomen. No evidence for bleeding, erythema or drainage) Extremities: No Pedal Edema. No: Increased Warmth Skin: Warm, Dry Psy/Mental Status: Alert, Normal Affect - Problem List Review Problem List Initiated/Reviewed/Updated: Yes - My Orders Last 24 Hours: My Active Orders 09/15/18 13:12 Barium Sulfate [E-Z-Hd] 50 gm PO . DIRECTED PRN Barium Sulfate [E-Z-Paste] 25 gm PO . 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 No anatomic abnormalities noted with EGD. No evidence for aspiration on video swallow study yesterday. -Honey thick liquids -IV fluids for hydration -esophagram versus manometry next week -Feeding tube placement complete, anticipate initiation of tube feedings tonight or tomorrow HISTORY OF DEEP VEIN THROMBOSIS - history of factor V Leiden, on long-term oral anticoagulation with warfarin, INR normalized with vitamin K yesterday. Patient and family are interested in switching to one of the new novel oral anticoagulants. -Consider apixaban to replace warfarin starting tomorrow CEREBROVASCULAR ACCIDENT - status post left-sided weakness last week with dramatic improvement. Mild residual left-sided weakness and discoordination. Dysphasia suspected to be related to the CVA as discussed above. Blood pressure is moderately elevated at this time but unable to take oral medications. -Restart amlodipine tomorrow DEMENTIA - mild, no behavior issues at this time. MAINTENANCE ISSUES -DVT prophylaxis; start DOAC tomorrow -GI prophylaxis; Protonix 40 mg IV daily -Serrano catheter; not indicated -Nutrition; nothing by mouth DISPOSITION - anticipate discharge [facility] after the hospital stay. Bud Wright MD
--- NOTE | 2018-09-16 12:28 | OR ---
DATE OF PROCEDURE: 09/16/2018 PROCEDURE: Percutaneous endoscopic gastrostomy tube. COMPLICATIONS: None. INSIDE TESTER: None. PREOPERATIVE DIAGNOSIS: Dysphagia. POSTOPERATIVE DIAGNOSIS: Dysphagia. RISKS: Risks, benefits, alternatives, and limitations including, but not limited to infection, bleeding, and injury to abdominal structures. The patient and family understand these risks, wished to proceed. PROCEDURE IN DETAIL: The patient was placed in supine position. EGD scope was introduced and foreign material was again noted. This was then pushed into the stomach. Transillumination and palpation techniques of the stomach were readily identified. This was easily transilluminated. This was then prepped and then anesthetized with 1% lidocaine. A single pablito was created in the skin. The needle was then passed through the abdominal wall directly into the stomach. A blue wire was then introduced. Scope was used to grasp the wire and pulled it in a retrograde fashion. This was then looped through the PEG tube, which was then pulled in an antegrade fashion. This was then cut to size including bumper, stopper, and end piece. This was then sutured to prevent movement. The scope was then reintroduced. The PEG tube was noted to be in a stable position. The procedure was terminated. The patient tolerated the procedure well. Jeanmarie Wick MD /[id number]
[2018-09-16] MEDS ORDERED: Loperamide 1 MG/7.5 ML 7.5 ML UD Cup PO PRN (14:02)
[2018-09-16] MEDS: Pantoprazole 40 MG Vial IVPUSH SCH (20:30)
[2018-09-17] MEDS: amLODIPine 5 MG Tab PO SCH ×2 (08:43→10:31)
[2018-09-17] MEDS: Apixaban 2.5 MG Tab PO SCH ×2 (08:43→10:31)
[2018-09-17] MEDS ORDERED: Acetaminophen Soln 650 MG/20.3 ML UD Cup GTUBE PRN (09:26)
[2018-09-17] MEDS: amLODIPine 5 MG Tab GTUBE SCH (09:54)
[2018-09-17] MEDS: Apixaban 2.5 MG Tab SCH ×2 (09:55→21:25)
--- NOTE | 2018-09-17 10:09 | PCM.PN ---
- General Info Date of Service: 09/17/18 Subjective Update: No acute events overnight. Tolerating tube feedings so far today. No significant abdominal pain today. No nausea. Strength stable to slowly improving. No fevers overnight. Functional Status: Reports: Pain Controlled, Tolerating Diet (tube feedings) - Review of Systems General: Denies: Fever Gastrointestinal: Denies: Abdominal Pain - Patient Data Vitals - Most Recent: Last Vital Signs Temp 36.9 C 09/17/18 07:24 Pulse 94 09/17/18 07:24 Resp 16 09/17/18 07:24 BP 164/81 H 09/17/18 09:54 Pulse Ox 95 09/17/18 07:24 Weight - Most Recent: 81.556 kg I&O - Last 24 Hours: Intake & Output 09/16/18 09/17/18 09/17/18 22:59 06:59 14:59 Intake Total 771 881 458 Balance 771 881 458 Med Orders - Current: Current Medications Acetaminophen (Tylenol) 650 mg GTUBE Q4H PRN PRN Reason: Pain/Fever Amlodipine Besylate (Norvasc) 2.5 mg GTUBE DAILY [facility] Last Admin: 09/17/18 09:54 Dose: 2.5 mg Apixaban (Eliquis) 2.5 mg .XX BID [facility] Last Admin: 09/17/18 09:55 Dose: 2.5 mg Atorvastatin Calcium (Lipitor) 80 mg GTUBE BEDTIME [facility] Levothyroxine Sodium (Synthroid) 50 mcg GTUBE ACBREAKFAST [facility] Loperamide HCl (Loperamide) 2 mg PO ASDIRECTED PRN PRN Reason: LOOSE STOOLS Ondansetron HCl (Zofran) 4 mg IV Q4H PRN PRN Reason: Nausea/Vomiting Last Admin: 09/13/18 20:15 Dose: 4 mg Pantoprazole Sodium (Protonix Granules) 40 mg PO ACBREAKFAST [facility] Polyethylene Glycol (Miralax) 17 gm PO DAILY PRN PRN Reason: Constipation Sodium Chloride (Saline Flush) 10 ml FLUSH ASDIRECTED PRN PRN Reason: Keep Vein Open Discontinued Medications Acetaminophen (Tylenol) 650 mg RECTAL Q4H PRN PRN Reason: Mild pain/fever Amlodipine Besylate (Norvasc) 2.5 mg PO DAILY [facility] Last Admin: 09/16/18 09:33 Dose: Not Given Amoxicillin/Clavulanate Potassium (Augmentin 875 Mg/125 Mg) 1 tab PO Q12H [facility] Last Admin: 09/12/18 21:57 Dose: 1 tab Amoxicillin/Clavulanate Potassium (Augmentin 400 Mg/5 Ml Susp) 875 mg PO BID [facility] Last Admin: 09/14/18 08:44 Dose: Not Given Apixaban (Eliquis) 2.5 mg PO BID [facility] Barium Sulfate (E-Z-Paste) 25 gm PO . DIRECTED PRN PRN Reason: RADIOLOGY EXAM Stop: 09/16/18 13:13 Last Admin: 09/15/18 14:15 Dose: 25 gm Barium Sulfate (E-Z-Hd) 50 gm PO . DIRECTED PRN PRN Reason: RADIOLOGY EXAM Stop: 09/16/18 13:13 Last Admin: 09/15/18 14:15 Dose: 50 gm Lactated Ringer's (Ringers, Lactated) 1,000 mls @ 150 mls/hr IV ASDIRECTED [facility] Last Admin: 09/12/18 20:46 Dose: 150 mls/hr Lactated Ringer's (Ringers, Lactated) 1,000 mls @ 125 mls/hr IV ASDIRECTED [facility] Last Admin: 09/13/18 04:15 Dose: 125 mls/hr Potassium Chloride 20 meq/Lidocaine HCl 2 ml/ Sodium Chloride 112 mls @ 56 mls/ hr IV Q2H [facility] Stop: 09/13/18 12:59 Last Admin: 09/13/18 12:23 Dose: 56 mls/hr Lactated Ringer's (Ringers, Lactated) 1,000 mls @ 75 mls/hr IV ASDIRECTED [facility] Last Admin: 09/14/18 04:47 Dose: 75 mls/hr Potassium Cl/Dextrose/Lact Ringer's (D5 Lr With 20 Meq Kcl) 1,000 mls @ 75 mls/ hr IV ASDIRECTED [facility] Stop: 09/17/18 07:00 Last Admin: 09/16/18 20:22 Dose: 75 mls/hr Phytonadione 10 mg/ Sodium (Chloride) 51 mls @ 100 mls/hr IV NOW ONE Stop: 09/14/18 11:30 Last Admin: 09/14/18 11:44 Dose: 100 mls/hr Potassium Chloride 20 meq/Lidocaine HCl 2 ml/ Sodium Chloride 112 mls @ 50 mls/ hr IV Q2H [facility] Stop: 09/14/18 12:59 Last Admin: 09/14/18 11:38 Dose: 50 mls/hr Potassium Chloride 20 meq/Lidocaine HCl 2 ml/ Sodium Chloride 112 mls @ 56 mls/ hr IV Q2H [facility] Stop: 09/15/18 14:29 Last Admin: 09/15/18 13:28 Dose: 56 mls/hr Sodium Chloride (Normal Saline) Confirm Administered Dose 500 mls @ as directed .ROUTE .STK-MED ONE Stop: 09/16/18 07:15 Lactobacillus Rhamnosus (Culturelle) 1 cap PO BID [facility] Last Admin: 09/14/18 08:44 Dose: Not Given Pantoprazole Sodium (Protonix Iv) 40 mg IVPUSH Q24H [facility] Last Admin: 09/13/18 00:13 Dose: 40 mg Pantoprazole Sodium (Protonix Iv) 40 mg IVPUSH BEDTIME [facility] Last Admin: 09/16/18 20:30 Dose: 40 mg Propofol (Diprivan 20 Ml) Confirm Administered Dose 200 mg .ROUTE .STK-MED ONE Stop: 09/16/18 06:57 - Exam Quality Assessment: No: Supplemental Oxygen General: Alert, Cooperative, No Acute Distress Lungs: Clear to Auscultation, Normal Respiratory Effort Cardiovascular: Regular Rate, Regular Rhythm GI/Abdominal Exam: Soft, No Distention Extremities: No Pedal Edema Psy/Mental Status: Alert, Normal Affect - Problem List Review Problem List Initiated/Reviewed/Updated: Yes - My Orders Last 24 Hours: My Active Orders 09/17/18 09:26 Acetaminophen [Tylenol] 650 mg GTUBE Q4H PRN 09/17/18 10:00 Apixaban [Eliquis] 2.5 mg .XX BID Levothyroxine [Synthroid] 50 mcg GTUBE ACBREAKFAST amLODIPine [Norvasc] 2.5 mg GTUBE DAILY 09/17/18 21:00 atorvaSTATin [Lipitor] 80 mg GTUBE BEDTIME 09/18/18 07:30 Pantoprazole [ProTONIX Granules] 40 mg PO ACBREAKFAST - Plan Plan:: ASSESSMENT AND PLAN 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 No anatomic abnormalities noted with EGD. No evidence for aspiration on video swallow study. -Honey thick liquids with pureed diet the patient is interested in trying -Saline lock IV -esophagram versus manometry next week -Advance tube feedings as tolerated, goal is to be receiving tube feedings overnight to maintain adequate nutrition HISTORY OF DEEP VEIN THROMBOSIS - history of factor V Leiden, on long-term oral anticoagulation with warfarin, INR normalized with vitamin K prior to tube feeding placement. -Start apixaban CEREBROVASCULAR ACCIDENT - status post left-sided weakness last week with dramatic improvement. Mild residual left-sided weakness and discoordination. Dysphasia suspected to be related to the CVA as discussed above. Blood pressure is moderately elevated at this time but unable to take oral medications. -Restart amlodipine DEMENTIA - mild, no behavior issues at this time. MAINTENANCE ISSUES -DVT prophylaxis; start DOAC today -GI prophylaxis; not indicated -Serrano catheter; not indicated -Nutrition; nothing by mouth DISPOSITION - anticipate discharge to half-way after the hospital stay, likely tomorrow Bud Wright MD
--- NOTE | 2018-09-17 12:49 | PN ---
DATE OF SERVICE: 09/17/2018 SUBJECTIVE: The patient is doing well today with no specific concerns. OBJECTIVE: VITAL SIGNS: Vital signs stable. CARDIOVASCULAR: Regular rhythm and rate. RESPIRATORY: Lungs clear to ausculation bilaterally. GASTROINTESTINAL: Feeding tube is intact. No abnormalities noted. ASSESSMENT AND PLAN: Functioning feeding tube. We will follow intermittently based upon need for him at this time. Jeanmarie Wick MD /[id number]
[2018-09-17] MEDS: Levothyroxine 50 MCG Tab GTUBE SCH (13:00)
[2018-09-17] MEDS ORDERED: atorvaSTATin 20 MG Tab GTUBE SCH (21:00)
[2018-09-18] MEDS ORDERED: Pantoprazole 40 MG Delayed-Release Granules 1 Packet PO SCH (07:30)
[2018-09-18] MEDS: Apixaban 2.5 MG Tab SCH (08:06)
[2018-09-18] MEDS: amLODIPine 5 MG Tab GTUBE SCH (08:06)
[2018-09-18] MEDS: Levothyroxine 50 MCG Tab GTUBE SCH (08:06)
[2018-09-18 11:10] VITALS: BP 135/81; PULSE 90
--- NOTE | 2018-09-18 11:10 | PCM.DCSUM1 ---
Discharge Summary - Hospital Course Brief History: 88-year-old male with recent history of stroke leading to mild residual left-sided weakness who presented with nausea and regurgitation of food concerning for dysphasia. He was admitted for management of presumed dysphasia as a liter effect of his recent stroke. Diagnosis: Stroke: No - Discharge Data Discharge Date: 09/18/18 Discharge Disposition: DC/Tfer to SNF 03 Condition: Good - Discharge Diagnosis/Problem(s) (1) Dysphagia SNOMED Code(s): 85546852, 129736870 ICD Code: R13.10 - DYSPHAGIA, UNSPECIFIED Status: Acute Qualifiers: Dysphagia type: esophageal phase Qualified Code(s): R13.10 - Dysphagia, unspecified (2) Cerebrovascular disease SNOMED Code(s): 52280201 ICD Code: I67.9 - CEREBROVASCULAR DISEASE, UNSPECIFIED Status: Acute (3) Anticoagulant therapy SNOMED Code(s): 027234553 ICD Code: Z79.01 - INSPECTOR RETURNED MATERIALS (CURRENT) USE OF ANTICOAGULANTS Status: Chronic (4) Hx pulmonary embolism SNOMED Code(s): 338969906 ICD Code: Z86.711 - PERSONAL HISTORY OF PULMONARY EMBOLISM Status: Chronic (5) CKD (chronic kidney disease) stage 3, GFR 30-59 ml/min SNOMED Code(s): 464101457 ICD Code: N18.3 - CHRONIC KIDNEY DISEASE, STAGE 3 (MODERATE) Status: Chronic - Patient Summary/Data Consults: Consultations 09/13/18 07:56 Consult to Physician [CONS] Routine Consulting Provider: Jeanmarie Wick Call Completed to Consulting Physician: Yes Reason for Consult: N/V, ? dysphagia 09/16/18 08:47 Consult to Hydraulic Pile Hammer Operator [CONS] Routine Comment: Physician Instructions: Quantity: Reason for Consult: re: tube feeding requirements Special Instructions: kcal requirements per tube feeding Recommended Follow-up Testing/Procedures: Esophagram next week to better evaluate the swallow mechanism Hospital Course: Reid presented to the emergency room for the second time in the day on 13 August. He had been seen earlier in the day with concerns of nausea and vomiting/ regurgitation of food. He had an EGD at that time which did not reveal evidence for stricture or significant abnormality, at least anatomically. He was started on Augmentin was concern that he may have aspirated slightly and sent back to the long-term. He returned later in the day with persistent difficulty. He had the sensation that food was getting stuck in his chest and after a fair amount of coughing he was able to dislodge the food bolus. He was admitted to the hospital for further workup and management. It was presumed at the time that this was related to his recent stroke. The plan is for him to have a video swallow study as well as an esophagram to further evaluate the swallow. He received IV fluids over the next couple of days lower waiting for the radiologist to be available to complete the testing. Unfortunately the testing got bumped from Friday, the second day after admission, to Friday. He did have a video swallow completed on Friday which showed no evidence for aspiration. Unfortunately the esophagram could not be completed that day because of swallowing difficulties. After discussions with the patient and his , we elected to proceed with feeding tube placement because even if the tests are normal the patient is unable to swallow safely at this time and has coughing spells after trying to eat or drink anything, even after recommendations from speech pathology. The feeding tube was placed without incident on September 16. The tube was allowed to mature for 24 hours and then tube feedings were initiated on September 17. He has been advanced to his goal rate of 100 mL per hour. He will be receiving tube feedings overnight to allow for more activity during the course of the day. He has tolerated his goal rate well. He has no significant abdominal pain. Speech pathology did suggest that he could have pured Diet and honey thick liquids but the patient is extremely apprehensive about taking anything by mouth because as of recently any ingestion leads to significant coughing spells. His vital signs have been stable. He has not been hypoxic. He has not had any fevers to raise concern for aspiration or active infection. He is safe for discharge at this time and will be going back to the transitional care unit for additional therapy. The plan is for him to complete an esophagram next week to further evaluate his ability to swallow and the function of the swallow mechanism. He is receiving his medications through the feeding tube at this time. He has been tolerating this well. Also of note, the patient had been started on systemic anticoagulation with warfarin. After further discussion we have elected to transition this to apixaban. His INR was reversed to normal with the use of vitamin K during the early portion of the hospital stay when we elected to move towards the feeding tube placement. He has been on the DOAC for about 24 hours, which was 24 hours after surgery. - Patient Instructions Diet: Pureed Diet, Other: Honey thick liquids Activity: As Tolerated Showering/Bathing: May Shower Notify Provider of: Fever, Increased Pain, Nausea and/or Vomiting Other/Special Instructions: 1. You were in the hospital for management of dysphasia which we suspect is a later effect from your recent stroke. There was no evidence for aspiration on the video swallow but we are suspicious that sure motility through the esophagus is ineffective. I do recommend that you have an esophagram performed next week to help further evaluate your swallowing. We have placed a gastrostomy tube so you can receive tube feedings as discussed below. Medications can also be administered through this tube. 2. Continue your home medications as previously prescribed with the exception of warfarin. This medication has been replaced by apixaban (Eliquis). This is an anticoagulant medication that will help reduce the risk of blood clot and stroke. 3. Follow up next week for esophagram. This radiology test will help better determine your swallow difficulties. The speech pathologist has cleared you to consume a pured diet with honey thick liquids. If you are apprehensive about taking anything by mouth you do not have to try to eat or drink anything until after the test has been completed. 4. Continue previous physical and occupational therapy orders. 5. Referral to speech pathology for dysphasia as a result of your recent stroke. 6. Seek medical attention if fever greater than 101, severe shortness of breath or if you develop significant abdominal pain. - Discharge Plan *PRESCRIPTION DRUG MONITORING PROGRAM REVIEWED*: No *COPY OF PRESCRIPTION DRUG MONITORING REPORT IN PATIENT SOL: No Prescriptions/Med Rec: amLODIPine Besylate [Norvasc] 2.5 mg GTUBE DAILY #30 tablet Apixaban [Eliquis] 2.5 mg .XX BID #60 tablet Magnesium Oxide 400 mg GTUBE DAILY #30 tablet Pantoprazole [ProTONIX Granules] 40 mg GTUBE ACBREAKFAST #30 packet Home Medications: Home Meds Apixaban [Eliquis] 2.5 mg .XX BID #60 tablet 09/18/18 [Rx] Levothyroxine [Synthroid] 50 mcg GTUBE DAILY #30 09/18/18 [Rx] Magnesium Oxide 400 mg GTUBE DAILY #30 tablet 09/18/18 [Rx] Pantoprazole [ProTONIX Granules] 40 mg GTUBE ACBREAKFAST #30 packet 09/18/18 [Rx] amLODIPine Besylate [Norvasc] 2.5 mg GTUBE DAILY #30 tablet 09/18/18 [Rx] atorvaSTATin [Lipitor] 80 mg GTUBE BEDTIME #30 09/18/18 [Rx] Oxygen Therapy Mode: Room Air Patient Handouts: Dysphagia Referrals: Jeanmarie Wick MD [Physician] - 09/24/18 10:00 am (Scheduled for a Monometry procedure. Please arrive 15 minutes early to register. NPO/HOLD TUBE FEEDING AFTER MIDNIGHT.) - Discharge Summary/Plan Comment DC Time >30 min.: Yes (40 - complicated NH discharge ) - Patient Data Vitals - Most Recent: Last Vital Signs Temp 37.1 C 09/18/18 07:00 Pulse 81 09/18/18 07:00 Resp 18 09/18/18 07:00 BP 128/65 09/18/18 08:06 Pulse Ox 96 09/18/18 07:00 Weight - Most Recent: 81.556 kg I&O - Last 24 hours: Intake & Output 09/17/18 09/18/18 09/18/18 22:59 06:59 14:59 Intake Total 905 Balance 905 Med Orders - Current: Current Medications Acetaminophen (Tylenol) 650 mg GTUBE Q4H PRN PRN Reason: Pain/Fever Amlodipine Besylate (Norvasc) 2.5 mg GTUBE DAILY [facility] Last Admin: 09/18/18 08:06 Dose: 2.5 mg Apixaban (Eliquis) 2.5 mg .XX BID [facility] Last Admin: 09/18/18 08:06 Dose: 2.5 mg Atorvastatin Calcium (Lipitor) 80 mg GTUBE BEDTIME [facility] Last Admin: 09/17/18 21:24 Dose: 80 mg Levothyroxine Sodium (Synthroid) 50 mcg GTUBE ACBREAKFAST [facility] Last Admin: 09/18/18 08:06 Dose: 50 mcg Loperamide HCl (Loperamide) 2 mg PO ASDIRECTED PRN PRN Reason: LOOSE STOOLS Ondansetron HCl (Zofran) 4 mg IV Q4H PRN PRN Reason: Nausea/Vomiting Last Admin: 09/13/18 20:15 Dose: 4 mg Pantoprazole Sodium (Protonix Granules) 40 mg PO ACBREAKFAST [facility] Last Admin: 09/18/18 08:06 Dose: 40 mg Polyethylene Glycol (Miralax) 17 gm PO DAILY PRN PRN Reason: Constipation Sodium Chloride (Saline Flush) 10 ml FLUSH ASDIRECTED PRN PRN Reason: Keep Vein Open Discontinued Medications Acetaminophen (Tylenol) 650 mg RECTAL Q4H PRN PRN Reason: Mild pain/fever Amlodipine Besylate (Norvasc) 2.5 mg PO DAILY [facility] Last Admin: 09/17/18 10:31 Dose: Not Given Amoxicillin/Clavulanate Potassium (Augmentin 875 Mg/125 Mg) 1 tab PO Q12H [facility] Last Admin: 09/12/18 21:57 Dose: 1 tab Amoxicillin/Clavulanate Potassium (Augmentin 400 Mg/5 Ml Susp) 875 mg PO BID [facility] Last Admin: 09/14/18 08:44 Dose: Not Given Apixaban (Eliquis) 2.5 mg PO BID [facility] Last Admin: 09/17/18 10:31 Dose: Not Given Barium Sulfate (E-Z-Paste) 25 gm PO . DIRECTED PRN PRN Reason: RADIOLOGY EXAM Stop: 09/16/18 13:13 Last Admin: 09/15/18 14:15 Dose: 25 gm Barium Sulfate (E-Z-Hd) 50 gm PO . DIRECTED PRN PRN Reason: RADIOLOGY EXAM Stop: 09/16/18 13:13 Last Admin: 09/15/18 14:15 Dose: 50 gm Lactated Ringer's (Ringers, Lactated) 1,000 mls @ 150 mls/hr IV ASDIRECTED [facility] Last Admin: 09/12/18 20:46 Dose: 150 mls/hr Lactated Ringer's (Ringers, Lactated) 1,000 mls @ 125 mls/hr IV ASDIRECTED [facility] Last Admin: 09/13/18 04:15 Dose: 125 mls/hr Potassium Chloride 20 meq/Lidocaine HCl 2 ml/ Sodium Chloride 112 mls @ 56 mls/ hr IV Q2H [facility] Stop: 09/13/18 12:59 Last Admin: 09/13/18 12:23 Dose: 56 mls/hr Lactated Ringer's (Ringers, Lactated) 1,000 mls @ 75 mls/hr IV ASDIRECTED [facility] Last Admin: 09/14/18 04:47 Dose: 75 mls/hr Potassium Cl/Dextrose/Lact Ringer's (D5 Lr With 20 Meq Kcl) 1,000 mls @ 75 mls/ hr IV ASDIRECTED [facility] Stop: 09/17/18 07:00 Last Admin: 09/16/18 20:22 Dose: 75 mls/hr Phytonadione 10 mg/ Sodium (Chloride) 51 mls @ 100 mls/hr IV NOW ONE Stop: 09/14/18 11:30 Last Admin: 09/14/18 11:44 Dose: 100 mls/hr Potassium Chloride 20 meq/Lidocaine HCl 2 ml/ Sodium Chloride 112 mls @ 50 mls/ hr IV Q2H [facility] Stop: 09/14/18 12:59 Last Admin: 09/14/18 11:38 Dose: 50 mls/hr Potassium Chloride 20 meq/Lidocaine HCl 2 ml/ Sodium Chloride 112 mls @ 56 mls/ hr IV Q2H [facility] Stop: 09/15/18 14:29 Last Admin: 09/15/18 13:28 Dose: 56 mls/hr Sodium Chloride (Normal Saline) Confirm Administered Dose 500 mls @ as directed .ROUTE .[facility] ONE Stop: 09/16/18 07:15 Lactobacillus Rhamnosus (Culturelle) 1 cap PO BID [facility] Last Admin: 09/14/18 08:44 Dose: Not Given Pantoprazole Sodium (Protonix Iv) 40 mg IVPUSH Q24H [facility] Last Admin: 09/13/18 00:13 Dose: 40 mg Pantoprazole Sodium (Protonix Iv) 40 mg IVPUSH BEDTIME [facility] Last Admin: 09/16/18 20:30 Dose: 40 mg Propofol (Diprivan 20 Ml) Confirm Administered Dose 200 mg .ROUTE .STK-MED ONE Stop: 09/16/18 06:57 - Exam Quality Assessment: Denies: Supplemental Oxygen General: Reports: Alert, Cooperative, No Acute Distress Lungs: Reports: Clear to Auscultation, Normal Respiratory Effort Cardiovascular: Reports: Regular Rate, Regular Rhythm GI/Abdominal Exam: Soft, No Distention Extremities: No Pedal Edema Wound/Incisions: Reports: Healing Well, No Drainage Psy/Mental Status: Reports: Alert, Normal Affect *Q Meaningful Use (DIS) - VTE *Q VTE Pharmacological Contraindications *Q: High INR Value
== END 2018-09-18 12:10 | disposition home or self-care (01) | DRG 57 ==
LOC: JP.ED 19:33 → UNDOADMIN 21:06 → JP.MS 21:06 → UNDODISIN 09-18 12:10
PROVIDERS: ADMIT Hospitalist; ATTEND Internal Medicine
PROC: 0DH63UZ Insertion of Feeding Device into Stomach, Percutaneous Approach (ICD-10-PCS; principal; 2018-09-16)
PROC: 3E0G76Z Introduction of Nutritional Substance into Upper GI, Via Natural or Artificial Opening (ICD-10-PCS; 2018-09-17)
DX: I69.391 Dysphagia following cerebral infarction (principal); R13.10 Dysphagia, unspecified; R11.2 Nausea with vomiting, unspecified; F03.90 Unspecified dementia, unspecified severity, without behavioral disturbance, psychotic disturbance, mood disturbance, and anxiety; Z86.711 Personal history of pulmonary embolism; Z86.718 Personal history of other venous thrombosis and embolism; Z79.01 Long term (current) use of anticoagulants; Z86.73 Personal history of transient ischemic attack (TIA), and cerebral infarction without residual deficits; Z66 Do not resuscitate; N18.3 Chronic kidney disease, stage 3 (moderate); Z88.1 Allergy status to other antibiotic agents; Z88.2 Allergy status to sulfonamides; Z88.8 Allergy status to other drugs, medicaments and biological substances; Z79.890 Hormone replacement therapy; Z79.899 Other long term (current) drug therapy; H54.7 Unspecified visual loss; K21.9 Gastro-esophageal reflux disease without esophagitis; E03.9 Hypothyroidism, unspecified; Z85.038 Personal history of other malignant neoplasm of large intestine
CPT/HCPCS: 81001; 99284; J7120; 36415; 74230; 74230-26; 80048; 85025; 85610; 92611-GN; 99283; A9270-GY; C9113; J2001; J2405; J2704; J3430; J3480; J7030; J7040; J7050

== ENCOUNTER → 2018-09-12 | Day surgery (SDC) | payer MEDICARE, BC ==
[~2018-09-12] MED LIST changes: +Lactated Ringers 1,000 ML ONE; +Propofol 200 MG/20 ML SDV ONE; -Sodium Chloride 0.9% 10 ML Syringe FLUSH PRN; +fentaNYL 100 MCG/2 ML SDV ONE
--- NOTE | 2018-09-12 10:40 | EDM.PDOC ---
ED HPI GENERAL MEDICAL PROBLEM - General Chief Complaint: Gastrointestinal Problem Stated Complaint: IMPACTED ESOPHAGUS Time Seen by Provider: 09/12/18 11:00 Source of Information: Reports: Patient - History of Present Illness INITIAL COMMENTS - FREE TEXT/NARRATIVE: 88 years old male patient presented to the ER with his with chief complaint of difficulty swallowing and vomiting. History protective from the patient and his at the bedside. Patient had difficulty swallowing since last . Everything comes back up. His last meal was 2 days ago. History of surgical resection. He was elevated a year and a half ago .patient denies any chest pain or shortness breath. Denies any abdominal pain diarrhea or constipation. Denies any urinary symptom. - Related Data Allergies Allergy/AdvReac Type Severity Reaction Status Date / Time glycopyrrolate [From Rodolfo] Allergy Other Verified 09/12/18 09:40 Sulfa (Sulfonamide Allergy Cannot Verified 09/12/18 09:40 Antibiotics) Remember ciprofloxacin AdvReac Stomach Verified 09/12/18 09:40 Upset doxycycline AdvReac Stomach Verified 09/12/18 09:40 Upset Home Meds: Home Meds Omeprazole 20 tab PO DAILY 09/20/13 [History] Warfarin Sliding Scale [Coumadin Sliding Scale] 2.5 - 5 mg PO DAILY 09/20/13 [ History] Levothyroxine [Synthroid] 50 mcg PO DAILY 04/11/16 [History] Magnesium Oxide 1 tab PO DAILY 09/12/18 [History] amLODIPine Besylate [Norvasc] 1 tab PO DAILY 09/12/18 [History] atorvaSTATin [Lipitor] 80 mg PO BEDTIME 09/12/18 [History] guaiFENesin [Robitussin] 1 dose PO ASDIRECTED 09/12/18 [History] Past Medical History HEENT History: Reports: Impaired Vision Other HEENT History: wears glasses Cardiovascular History: Reports: Blood Clots/VTE/DVT Respiratory History: Reports: PE Gastrointestinal History: Reports: Colon Polyp, GERD, GI Bleed Genitourinary History: Reports: Prostate Disorder, Renal Disease Neurological History: Reports: Concussion, CVA Psychiatric History: Reports: Dementia Endocrine/Metabolic History: Reports: Hypothyroidism Hematologic History: Reports: Anticoagulation Therapy, Blood Transfusion(s) Oncologic (Cancer) History: Reports: Colon - Infectious Disease History Infectious Disease History: Reports: Chicken Pox, Measles - Past Surgical History HEENT Surgical History: Reports: Cataract Surgery, Oral Surgery GI Surgical History: Reports: Cholecystectomy, EGD, Esophageal Dilatation, Hernia, Inguinal Social & Family History - Family History Family Medical History: Noncontributory - Tobacco Use Smoking Status *Q: Never Smoker - Caffeine Use Caffeine Use: Reports: Coffee - Recreational Drug Use Recreational Drug Use: No ED ROS GENERAL - Review of Systems Review Of Systems: ROS reveals no pertinent complaints other than HPI. ED EXAM, GI/ABD - Physical Exam Exam: See Below Exam Limited By: No Limitations Ears: Normal External Exam Nose: Normal Inspection Head: Atraumatic, Normocephalic Neck: Normal Inspection Respiratory/Chest: No Respiratory Distress, Lungs Clear, Normal Breath Sounds Cardiovascular: Normal Peripheral Pulses, Irregularly Irregular GI/Abdominal Exam: Normal Bowel Sounds, Soft, Non-Tender, No Organomegaly, No Distention Course - Vital Signs Last Recorded V/S: Last Vital Signs Temp 36.7 C 09/12/18 12:05 Pulse 64 09/12/18 12:52 Resp 22 H 09/12/18 12:25 BP 139/55 L 09/12/18 12:52 Pulse Ox 94 L 09/12/18 12:52 - Orders/Labs/Meds Orders: Active Orders 24 hr Category Date Time Status Cardiac Monitoring [RC] .As Directed Care 09/12/18 10:49 Active Ready for Discharge [RC] PER UNIT ROUTINE Care 09/12/18 12:10 Active Labs: Laboratory Tests 09/12/18 09/12/18 09/12/18 Range/Units 11:00 11:00 11:00 WBC 8.1 (4.5-11.0) K/uL RBC 4.03 L (4.30-5.90) M/uL Hgb 12.0 (12.0-15.0) g/dL Hct 36.8 L (40.0-54.0) % MCV 91 (80-98) fL MCH 30 (27-31) pg MCHC 33 (32-36) % Plt Count 181 (150-400) K/uL Neut % (Auto) 86 H (36-66) % Lymph % (Auto) 5 L (24-44) % [place] % (Auto) 8 H (2-6) % Eos % (Auto) 0 L (2-4) % Baso % (Auto) 0 (0-1) % PT 34.2 H (9.5-12.0) sec INR 3.39 H (0.80-1.20) Sodium 143 (140-148) mmol/L Potassium 3.6 (3.6-5.2) mmol/L Chloride 104 (100-108) mmol/L Carbon Dioxide 24 (21-32) mmol/L Anion Gap 15.0 H (5.0-14.0) mmol/L BUN 17 (7-18) mg/dL Creatinine 1.7 H (0.8-1.3) mg/dL Est Cr Clr Drug Dosing 31.01 mL/min Estimated GFR (MDRD) 38 L (>60) Glucose 105 (74-106) mg/dL Calcium 9.0 (8.5-10.1) mg/dL Meds: Medications Discontinued Medications Generic Name Dose Route Start Last Admin Trade Name Freq PRN Reason Stop Dose Admin Fentanyl Confirm 09/12/18 11:21 Sublimaze Administered 09/12/18 11:22 Dose 100 mcg .ROUTE .STK-MED ONE Lactated Ringer's Confirm 09/12/18 12:14 Ringers, Lactated Administered 09/12/18 12:15 Dose 1,000 mls @ as directed .ROUTE .STK-MED ONE Propofol Confirm 09/12/18 11:22 Diprivan 20 Ml Administered 09/12/18 11:23 Dose 200 mg .ROUTE .STK-MED ONE - Re-Assessments/Exams Free Text/Narrative Re-Assessment/Exam: 09/12/18 10:55 Patient was seen and examined shortly after arrival. Stable. He was given some coke to drink and he vomited I did consulted was Dr. Wick. He came down and evaluates patient. He does not think the patient needs any scopes. He wanted to follow with him as an outpatient. Patient is a high risk for aspiration and distal discharge instruction regarding his diet was given to the patient also started on Augmentin by Dr. Wick for concern about aspiration pneumonia. Chest x-ray did not show any evidence of acute infiltrate but the patient have mild cough. Patient advised to follow up closely with his primary doctor. Come back if symptom worsen. Patient agrees with the plan. Stable for discharge.. possible this09/12/18 13:25 Departure - Departure Time of Disposition: 13:27 Disposition: DC/Tfer to SNF 03 Condition: Good Clinical Impression: Dysphagia - Discharge Information - My Orders Last 24 Hours: My Active Orders 09/12/18 10:49 Cardiac Monitoring [RC] .As Directed - Assessment/Plan Last 24 Hours: My Active Orders 09/12/18 10:49 Cardiac Monitoring [RC] .As Directed Plan: Close follow-up with PCP. Close monitoring of INR. Follow-up was Dr. Wick has advised. Come back if symptom worsen.
--- NOTE | 2018-09-12 12:00 | CRLCR ---
INDICATION: Chest pain TECHNIQUE: Chest 1 views COMPARISON: January 13, 2018 FINDINGS: Calcified granulomas bilaterally and calcified bilateral hilar lymph nodes representing sequela of prior granulomatous disease. Mild scarring at the left lung base. No effusion or pneumothorax. IMPRESSION: Old granulomatous disease. Left basilar scarring. No acute disease. Dictated by Andres Walter MD @ Sep 12 2018 11:57AM Signed by Dr. Andres Walter @ Sep 12 2018 11:59AM
[2018-09-12 13:02] VITALS: PULSE 64
[2018-09-12 13:29] VITALS: BP 125/45
--- NOTE | 2018-09-15 11:24 | OR ---
DATE OF PROCEDURE: 09/12/2018 PROCEDURE: EGD with foreign body removal and dilation to 36-Gambian. COMPLICATION: None. AGRICULTURE INSPECTOR: None. ANESTHESIA: MAC. RISKS: Risks, benefits, alternatives, and limitations including, but not limited to infection, bleeding, and perforation, and the patient wished to proceed. I did discuss with the patient and family that the large risk here is aspiration, specifically pneumonia. The patient will be given antibiotics postoperatively as it was noted, when the patient was seen in the emergency room, he did have a cough; however, he remained saturated at the end of procedure. PROCEDURE IN DETAIL: The patient was placed in left lateral decubitus position. The EGD scope was introduced and advanced into the esophagus. We immediately noted solid and liquid food-type material was noted. The scope was advanced into the stomach. At no time was the scope blindly advanced. The food material was pushed in the stomach itself. The duodenum was investigated with a brief examination due to the patient's risk of aspiration, this was abbreviated. Prior to this, the 36-Gambian balloon was introduced and dilated, stage II. The patient did have a small hiatal hernia. Esophagus from what could be seen was normal. The patient tolerated the procedure well. Jeanmarie Wick MD /[id number]
== END ==
LOC: JP.ED 09:02 → JP.SDS 12:13
PROVIDERS: ATTEND Surgery
DX: T18.128A Food in esophagus causing other injury, initial encounter (principal); R13.10 Dysphagia, unspecified; K44.9 Diaphragmatic hernia without obstruction or gangrene; E03.9 Hypothyroidism, unspecified; R05 Cough; Z88.2 Allergy status to sulfonamides; Z88.1 Allergy status to other antibiotic agents; Z88.8 Allergy status to other drugs, medicaments and biological substances; Z86.718 Personal history of other venous thrombosis and embolism; Z86.73 Personal history of transient ischemic attack (TIA), and cerebral infarction without residual deficits; Z79.01 Long term (current) use of anticoagulants; Z79.899 Other long term (current) drug therapy
CPT/HCPCS: 36415; 43233; 43247; 71045; 80048; 85025; 85610; 99284; J2704; J7120; J3010

== ENCOUNTER 2018-10-01 07:08 | Day surgery (SDC) | payer MEDICARE, BC ==
[2018-10-01] MEDS ORDERED: Propofol 200 MG/20 ML SDV ONE ×2 (07:25→08:39)
[2018-10-01] MEDS ORDERED: Sodium Chloride 0.9% 1,000 ML IV SCH (08:00)
[2018-10-01 10:01] VITALS: BP 113/87; PULSE 77
--- NOTE | 2018-10-01 11:01 | OR ---
DATE OF PROCEDURE: 10/01/2018 SURGEON: Jeanmarie Wick MD PROCEDURE: Esophagogastroduodenoscopy with dilation. PREOPERATIVE DIAGNOSIS: Dysphagia/achalasia. POSTOPERATIVE DIAGNOSIS: Dysphagia/achalasia. RISKS: Risks, benefits, alternatives, and limitations including, but not limited to infection, bleeding, and perforation were explained to the patient and wished to proceed. PROCEDURE IN DETAIL: The patient was placed in left lateral decubitus position. The esophagogastroduodenoscopy scope was then introduced, advanced atraumatically to second part of the duodenum. No abnormalities were noted. The PEG tube was noted to be intact without abnormality. No abnormalities on retroflexion. The GE junction was normal without any evidence of abnormality. 36-Serbian balloon was then introduced and dilated to stage III under direct visualization. No abnormalities were noted after dilation. The esophagus was normal. The patient tolerated the procedure well. Jeanmarie Wick MD /[id number]
== END 2018-10-01 10:32 | disposition home or self-care (01) ==
LOC: JP.SDS 07:08
PROVIDERS: ATTEND Surgery
DX: K22.0 Achalasia of cardia (principal); E03.9 Hypothyroidism, unspecified; N18.9 Chronic kidney disease, unspecified; Z93.1 Gastrostomy status; Z86.718 Personal history of other venous thrombosis and embolism; Z86.73 Personal history of transient ischemic attack (TIA), and cerebral infarction without residual deficits
CPT/HCPCS: 43233; J2704; J7030

== ENCOUNTER 2018-12-11 05:35 | Day surgery (SDC) | payer MEDICARE, BC ==
[2018-12-11] MEDS ORDERED: Dextrose 5%-Lactated Ringers 1,000 ML IV SCH (06:15)
[2018-12-11] MEDS ORDERED: Midazolam 1 MG/ML 2 ML SDV ONE (07:09)
[2018-12-11] MEDS ORDERED: Propofol 200 MG/20 ML SDV ONE (07:09)
[2018-12-11] MEDS ORDERED: fentaNYL 100 MCG/2 ML SDV ONE (07:09)
[2018-12-11 08:28] VITALS: BP 166/76; PULSE 57
--- NOTE | 2018-12-25 11:44 | OR ---
DATE OF PROCEDURE: 12/11/2018 SURGEON: Taras Sales MD PREOPERATIVE DIAGNOSIS: Indication for screening colonoscopy based on history of colon carcinoma. POSTOPERATIVE DIAGNOSIS: 1. Indication for screening colonoscopy based on history of colon carcinoma. 2. Recurrent polyps x2. OPERATIVE PROCEDURE: Flexible colonoscopy with polypectomy by snare technique x2. ANESTHESIA: IV sedation. INDICATION FOR PROCEDURE: This 88-year-old male, status post right colectomy for colon carcinoma, is to undergo a followup screening colonoscopy to rule out any recurrent tumor or new polyp formation. Potential risks including bleeding and perforation were discussed, and the patient wishes to proceed. DETAILS OF PROCEDURE: The patient was taken to the operating room and placed in a left lateral decubitus position. IV sedation was administered, after which the initial digital rectal exam was performed and was unremarkable. The colonoscope was passed into the rectum with retroflexion revealing uncomplicated hemorrhoidal columns. The scope was eventually passed to the anastomosis between the small bowel and the mid transverse colon. The prep was generally fairly good. There was some liquid stool present, but the vast majority of the mucosal surfaces were well visualized. There were no areas of diverticular disease or colitis. There were 2 small polyps, both in the range of around 3 to 4 mm; one was adjacent to the ileocolic anastomosis, but not at the anastomotic line per se, and the second in the mid sigmoid colon, roughly 25 cm from the dentate line. Both polyps were encircled at their base and excised by means of cautery snare and sent separately for pathologic evaluation. Good hemostasis was noted at the polypectomy sites, and the scope was withdrawn. No additional abnormalities were noted, and the patient was taken to the recovery room in satisfactory condition. At 88, the patient's health remains reasonably good. One should consider a repeat colonoscopy in perhaps 2 years. Taras Sales MD /[id number]
== END 2018-12-11 08:45 | disposition home or self-care (01) ==
LOC: JP.SDS 05:35
PROVIDERS: ATTEND Surgery
DX: Z12.11 Encounter for screening for malignant neoplasm of colon (principal); D12.3 Benign neoplasm of transverse colon; D12.5 Benign neoplasm of sigmoid colon; K64.9 Unspecified hemorrhoids; E78.00 Pure hypercholesterolemia, unspecified; D68.2 Hereditary deficiency of other clotting factors; N18.9 Chronic kidney disease, unspecified; Z90.49 Acquired absence of other specified parts of digestive tract; Z85.038 Personal history of other malignant neoplasm of large intestine
CPT/HCPCS: 45385; 88305; J2250; J2704; J3010; J7042

== ENCOUNTER 2019-02-10 13:05 | Observation (INO) | payer MEDICARE, BC ==
[2019-02-10] MEDS ORDERED: predniSONE 20 MG Tab PO ONE (14:58)
[2019-02-10] MEDS ORDERED: Albuterol/Ipratropium 3.0-0.5 MG/3 ML Neb Soln NEB ONE (14:58)
[2019-02-10] MEDS ORDERED: Ondansetron 4 MG/2 ML SDV IVPUSH ONE (15:43)
[2019-02-10] MEDS ORDERED: HYDROmorphone 0.5 MG/0.5 ML Syringe IVPUSH ONE (15:43)
[2019-02-10] MEDS ORDERED: Sodium Chloride 0.9% 1,000 ML IV SCH (15:45)
--- NOTE | 2019-02-10 16:34 | CRLCT ---
INDICATION: Right upper abdominal pain. TECHNIQUE: Volumetric helical scanning of the abdomen and pelvis was performed without contrast material. Coronal and sagittal reconstructions were obtained. COMPARISON: None FINDINGS: Innumerable liver lesions are demonstrated, consistent with metastatic disease. The gallbladder has been removed. No bile duct dilation is evident. Olinda hepatis lymphadenopathy is noted. No retroperitoneal, mesenteric or pelvic adenopathy is noted. The spleen is unremarkable except for numerous calcified granulomas. 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 The left adrenal is normal. The pancreas is within normal limits. The prostate is moderate to markedly enlarged. The bladder is trabeculated and distended with urine. Moderate left hydroureter and marked hydronephrosis is demonstrated. The right ureter and collecting system are normal. Renal cysts are present bilaterally. Postop changes of right hemicolectomy are noted. The bowel is otherwise unremarkable except for colonic diverticulosis No free fluid is demonstrated. The lung bases are clear. A number of calcified granulomas are noted in the lung bases. The heart is normal in size. IMPRESSION: 1. Hepatic metastatic disease. Primary lesion not evident. 2. Olinda hepatis lymphadenopathy. No adenopathy otherwise. 3. Moderate to marked prostate enlargement. 4. Bladder distension with trabeculation as well as moderate left hydroureter and hydronephrosis. Right ureter and collecting system unremarkable. 5. Renal cysts. 6. Post right hemicolectomy. 7. Colonic diverticulosis. Please note that all CT scans at this facility use dose modulation, iterative reconstruction, and/or weight-based dosing when appropriate to reduce radiation dose to as low as reasonably achievable. Dictated by Elton Shipman MD @ Feb 10 2019 4:23PM Signed by Dr. Elton Shipman @ Feb 10 2019 4:33PM
--- NOTE | 2019-02-10 17:54 | EDM.PDOC ---
ED HPI GENERAL MEDICAL PROBLEM - General Chief Complaint: Abdominal Pain Stated Complaint: PAIN IN RIBS, FEVER Time Seen by Provider: 02/10/19 17:57 Source of Information: Reports: Patient History Limitations: Reports: No Limitations - History of Present Illness INITIAL COMMENTS - FREE TEXT/NARRATIVE: pt arrived with pain in the rt upper abdoman. He is very tender to push on this area. The pt has not been eating or drinking fluids well. He states the pain the last 2 days has been alot worse. He hurts alot when he takes a deep breath. He has a history of colon Ca 1 year ago and at that time all of his nodes were positive. He did not have liver lesions according to the [facility]. He chose not to have chemo. Onset: Gradual, Other ( Pt has been having increased pain. ) Duration: Hour(s): Location: Reports: Abdomen Associated Symptoms: Reports: Shortness of Breath. Denies: Other ( abdomanalpain) - Related Data Allergies Allergy/AdvReac Type Severity Reaction Status Date / Time glycopyrrolate [From Robertul] Allergy Other Verified 02/10/19 14:04 Sulfa (Sulfonamide Allergy Fever Verified 02/10/19 14:04 Antibiotics) ciprofloxacin AdvReac Stomach Verified 02/10/19 14:04 Upset doxycycline AdvReac Stomach Verified 02/10/19 14:04 Upset Home Meds: Home Meds Apixaban [Eliquis] 2.5 mg PO BID 09/29/18 [History] Levothyroxine [Synthroid] 75 mcg PO DAILY 09/29/18 [History] Magnesium Oxide 400 mg PO DAILY 09/29/18 [History] amLODIPine Besylate [Norvasc] 2.5 mg PO DAILY 09/29/18 [History] atorvaSTATin [Lipitor] 20 mg PO BEDTIME 09/29/18 [History] Pantoprazole Sodium [Protonix] 40 mg PO DAILY 10/01/18 [History] Cyanocobalamin (Vitamin B-12) [Vitamin B12] 5,000 mcg PO DAILY 12/11/18 [History ] Past Medical History HEENT History: Reports: Impaired Vision Other HEENT History: wears glasses Cardiovascular History: Reports: Arrhythmia, Blood Clots/VTE/DVT, High Cholesterol, Hypertension Respiratory History: Reports: PE Gastrointestinal History: Reports: Colon Polyp, GERD, GI Bleed, Other (See Below ) Other Gastrointestinal History: bleeding gastric ulcers Genitourinary History: Reports: Prostate Disorder, Renal Disease, Other (See Below) Other Genitourinary History: Stage III kidney disease Neurological History: Reports: CVA Psychiatric History: Reports: Dementia Endocrine/Metabolic History: Reports: Hypothyroidism Hematologic History: Reports: Anticoagulation Therapy, Blood Transfusion(s) Oncologic (Cancer) History: Reports: Colon - Infectious Disease History Infectious Disease History: Reports: Chicken Pox, Measles, Mumps - Past Surgical History HEENT Surgical History: Reports: Cataract Surgery, Oral Surgery Cardiovascular Surgical History: Reports: None Respiratory Surgical History: Reports: None GI Surgical History: Reports: Cholecystectomy, Colon, Colonoscopy, EGD, Esophageal Dilatation, Hernia, Inguinal, Other (See Below) Other GI Surgeries/Procedures: colon resection for CA Neurological Surgical History: Reports: None Social & Family History - Family History Family Medical History: Noncontributory - Caffeine Use Caffeine Use: Reports: Coffee ED ROS GENERAL - Review of Systems Review Of Systems: See Below Constitutional: Reports: Decreased Appetite, Weight Loss, Other (pt is definitely weaker. ) HEENT: Reports: No Symptoms Respiratory: Reports: No Symptoms Cardiovascular: Reports: No Symptoms Endocrine: Reports: No Symptoms GI/Abdominal: Reports: Abdominal Pain, Other (pt is very tender in the rt upper abdoman. ) : Reports: No Symptoms Musculoskeletal: Reports: No Symptoms Skin: Reports: No Symptoms Neurological: Reports: Other (pt had a stroke last summer and his memory is much worse. ) Psychiatric: Reports: No Symptoms ED EXAM, GI/ABD - Physical Exam Exam: See Below Text/Narrative:: pt arrived with severe pain in the rt upper abdoman. He had pain with deep breathing. He has not been vomiting but he has been eating very poorly. He has lost about 25 lbs. Exam Limited By: No Limitations General Appearance: Alert, Anxious, Moderate Distress, Other ( The pain is very sharp when he takes a deep breath) Ears: Normal TMs Nose: Normal Inspection Throat/Mouth: Normal Inspection Head: Atraumatic Neck: Normal Inspection Respiratory/Chest: No Respiratory Distress Cardiovascular: Regular Rate, Rhythm GI/Abdominal Exam: Tender, Other (pt had a mass in the rt upper abdoman. He is very tender in this site. ) (Male) Exam: Deferred Rectal (Males) Exam: Deferred Back Exam: Normal Inspection Extremities: Normal Inspection Course - Vital Signs Last Recorded V/S: Last Vital Signs Temp 36.1 C 02/10/19 14:01 Pulse 77 02/10/19 17:38 Resp 16 02/10/19 16:17 BP 174/83 H 02/10/19 17:38 Pulse Ox 100 02/10/19 17:38 - Orders/Labs/Meds Orders: Active Orders 24 hr Category Date Time Status RT Aerosol Therapy [RC] ASDIRECTED Care 02/10/19 14:58 Active Sodium Chloride 0.9% [Normal Saline] 1,000 ml Med 02/10/19 15:45 Active IV ASDIRECTED Medication Orders Sodium Chloride (Normal Saline) 1,000 mls @ 500 mls/hr IV ASDIRECTED IVELISSE Last Admin: 02/10/19 16:13 Dose: 500 mls/hr Labs: Laboratory Tests 02/10/19 02/10/19 02/10/19 Range/Units 15:09 15:09 15:09 WBC 7.3 (4.5-11.0) K/uL RBC 3.77 L (4.30-5.90) M/uL Hgb 10.8 L (12.0-15.0) g/dL Hct 33.8 L (40.0-54.0) % MCV 90 (80-98) fL MCH 29 (27-31) pg MCHC 32 (32-36) % Plt Count 240 (150-400) K/uL Neut % (Auto) 71 H (36-66) % Lymph % (Auto) 15 L (24-44) % Campbell % (Auto) 14 H (2-6) % Eos % (Auto) 0 L (2-4) % Baso % (Auto) 0 (0-1) % Sodium 136 L (140-148) mmol/L Potassium 4.4 (3.6-5.2) mmol/L Chloride 101 (100-108) mmol/L Carbon Dioxide 26 (21-32) mmol/L Anion Gap 13.4 (5.0-14.0) mmol/L BUN 30 H D (7-18) mg/dL Creatinine 2.1 H (0.8-1.3) mg/dL Est Cr Clr Drug Dosing 25.11 mL/min Estimated GFR (MDRD) 30 L (>60) Glucose 103 (74-106) mg/dL Calcium 8.6 (8.5-10.1) mg/dL Total Bilirubin 0.9 (0.2-1.0) mg/dL AST 60 H (15-37) U/L ALT 36 (12-78) U/L Alkaline Phosphatase 440 H D (46-116) U/L C-Reactive Protein 9.78 H (0.0-0.3) mg/dL Total Protein 7.3 (6.4-8.2) g/dL Albumin 2.9 L (3.4-5.0) g/dL Globulin 4.4 H (2.3-3.5) g/dL Albumin/Globulin Ratio 0.7 L (1.2-2.2) Lipase (73-393) U/L Urine Color (YELLOW) Urine Appearance (CLEAR) Urine pH (5.0-8.0) Ur Specific [place] (1.008-1.030) Urine Protein (NEGATIVE) mg/dL Urine Glucose (UA) (NEGATIVE) mg/dL Urine Ketones (NEGATIVE) mg/dL Urine Occult Blood (NEGATIVE) Urine Nitrite (NEGATIVE) Urine Bilirubin (NEGATIVE) Urine Urobilinogen (0.2-1.0) EU/dL Ur Leukocyte Esterase (NEGATIVE) Urine RBC (0-5) Urine WBC (0-5) Ur Epithelial Cells Amorphous Sediment Urine Bacteria Urine Mucus Urine Other 02/10/19 02/10/19 Range/Units 15:29 17:32 WBC (4.5-11.0) K/uL RBC (4.30-5.90) M/uL Hgb (12.0-15.0) g/dL Hct (40.0-54.0) % MCV (80-98) fL MCH (27-31) pg MCHC (32-36) % Plt Count (150-400) K/uL Neut % (Auto) (36-66) % Lymph % (Auto) (24-44) % Campbell % (Auto) (2-6) % Eos % (Auto) (2-4) % Baso % (Auto) (0-1) % Sodium (140-148) mmol/L Potassium (3.6-5.2) mmol/L Chloride (100-108) mmol/L Carbon Dioxide (21-32) mmol/L Anion Gap (5.0-14.0) mmol/L BUN (7-18) mg/dL Creatinine (0.8-1.3) mg/dL Est Cr Clr Drug Dosing mL/min Estimated GFR (MDRD) (>60) Glucose (74-106) mg/dL Calcium (8.5-10.1) mg/dL Total Bilirubin (0.2-1.0) mg/dL AST (15-37) U/L ALT (12-78) U/L Alkaline Phosphatase (46-116) U/L C-Reactive Protein (0.0-0.3) mg/dL Total Protein (6.4-8.2) g/dL Albumin (3.4-5.0) g/dL Globulin (2.3-3.5) g/dL Albumin/Globulin Ratio (1.2-2.2) Lipase 174 (73-393) U/L Urine Color Yellow (YELLOW) Urine Appearance Clear (CLEAR) Urine pH 6.0 (5.0-8.0) Ur Specific [place] 1.020 (1.008-1.030) Urine Protein 30 H (NEGATIVE) mg/dL Urine Glucose (UA) Negative (NEGATIVE) mg/dL Urine Ketones Negative (NEGATIVE) mg/dL Urine Occult Blood Negative (NEGATIVE) Urine Nitrite Negative (NEGATIVE) Urine Bilirubin Negative (NEGATIVE) Urine Urobilinogen 0.2 (0.2-1.0) EU/dL Ur Leukocyte Esterase Negative (NEGATIVE) Urine RBC 0-5 (0-5) Urine WBC 0-5 (0-5) Ur Epithelial Cells Few Amorphous Sediment Not seen Urine Bacteria Few Urine Mucus Moderate Urine Other Meds: Medications Generic Name Dose Route Start Last Admin Trade Name Freq PRN Reason Stop Dose Admin Sodium Chloride 1,000 mls @ 500 mls/hr 02/10/19 15:45 02/10/19 16:13 Normal Saline IV 500 mls/hr ASDIRECTED IVELISSE Administration Discontinued Medications Generic Name Dose Route Start Last Admin Trade Name Freq PRN Reason Stop Dose Admin Albuterol/Ipratropium 3 ml 02/10/19 14:58 02/10/19 15:17 Duoneb 3.0-0.5 Mg/3 Ml NEB 02/10/19 14:59 Not Given ONETIME ONE Hydromorphone HCl 0.5 mg 02/10/19 15:43 Dilaudid IVPUSH 02/10/19 15:44 ONETIME ONE Ondansetron HCl 4 mg 02/10/19 15:43 Zofran IVPUSH 02/10/19 15:44 ONETIME ONE Prednisone 30 mg 02/10/19 14:58 02/10/19 15:17 Prednisone PO 02/10/19 14:59 Not Given ONETIME ONE - Re-Assessments/Exams Free Text/Narrative Re-Assessment/Exam: 02/10/19 18:05 pt has a elevated crp, his alkphos is high. He is mildly anemic. A cat scan of the abdoman was done which showed multiple liver lesions probably metastatic. Departure - Departure Time of Disposition: 18:07 Disposition: Admitted As Inpatient 66 Condition: Fair Clinical Impression: Abdominal pain, Colon adenocarcinoma, Anemia - Discharge Information Referrals: Naren Madsen MD [Primary Care Provider] - Forms: ED Department Discharge Care Plan Goals: admit to Dr Peña Sepsis Event Note - Evaluation Sepsis Screening Result: No Definite Risk - Focused Exam Vital Signs: Vital Signs Temp Pulse Resp BP Pulse Ox 02/10/19 17:38 77 174/83 H 100 02/10/19 16:17 75 16 157/79 H 98 02/10/19 15:03 76 138/82 94 L 02/10/19 14:01 36.1 C 81 16 154/84 H 96 02/10/19 13:32 36.1 C 81 16 154/84 H 96 Date Exam was Performed: 02/10/19 Time Exam was Performed: 17:57 - My Orders Last 24 Hours: My Active Orders 02/10/19 14:58 RT Aerosol Therapy [RC] ASDIRECTED 02/10/19 15:45 Sodium Chloride 0.9% [Normal Saline] 1,000 ml IV ASDIRECTED - Assessment/Plan Last 24 Hours: My Active Orders 02/10/19 14:58 RT Aerosol Therapy [RC] ASDIRECTED 02/10/19 15:45 Sodium Chloride 0.9% [Normal Saline] 1,000 ml IV ASDIRECTED
--- NOTE | 2019-02-10 18:30 | PCM.HP.2 ---
H&P History of Present Illness - General Date of Service: 02/10/19 Admit Problem/Dx: Admission Diagnosis/Problem Admission Diagnosis/Problem Pain Source of Information: Patient, Family, Provider, RN Notes Reviewed History Limitations: Reports: No Limitations - History of Present Illness Initial Comments - Free Text/Narative: Mr. Awan is an 88-year-old gentleman who was admitted to observation status through the emergency department for management of pain secondary to metastatic colon cancer. He was diagnosed with colon cancer approximately 1 year ago and underwent surgical resection. At that time there was no evidence of metastatic disease to the liver but several lymph nodes obtained during surgery were found to be positive. At that time he opted not to proceed with further treatment including chemotherapy. Had done well until the past month when he is been losing weight with decrease in appetite bloating and right upper quadrant abdominal pain. Because of weakness and pain he was brought into the emergency department for further evaluation today. CT scan of the abdomen and pelvis shows significant metastatic disease in the liver. He still does not want aggressive interventions and would like to be treated for comfort. - Related Data Allergies/Adverse Reactions: Allergies Allergy/AdvReac Type Severity Reaction Status Date / Time glycopyrrolate [From Robinul] Allergy Other Verified 02/10/19 14:04 Sulfa (Sulfonamide Allergy Fever Verified 02/10/19 14:04 Antibiotics) ciprofloxacin AdvReac Stomach Verified 02/10/19 14:04 Upset doxycycline AdvReac Stomach Verified 02/10/19 14:04 Upset Home Medications: Home Meds Apixaban [Eliquis] 2.5 mg PO BID 09/29/18 [History] Levothyroxine [Synthroid] 75 mcg PO DAILY 09/29/18 [History] Magnesium Oxide 400 mg PO DAILY 09/29/18 [History] amLODIPine Besylate [Norvasc] 2.5 mg PO DAILY 09/29/18 [History] atorvaSTATin [Lipitor] 20 mg PO BEDTIME 09/29/18 [History] Pantoprazole Sodium [Protonix] 40 mg PO DAILY 10/01/18 [History] Cyanocobalamin (Vitamin B-12) [Vitamin B12] 5,000 mcg PO DAILY 12/11/18 [History ] Past Medical History HEENT History: Reports: Impaired Vision Other HEENT History: wears glasses Cardiovascular History: Reports: Arrhythmia, Blood Clots/VTE/DVT, High Cholesterol, Hypertension Respiratory History: Reports: PE Gastrointestinal History: Reports: Colon Polyp, GERD, GI Bleed, Other (See Below ) Other Gastrointestinal History: bleeding gastric ulcers Genitourinary History: Reports: Prostate Disorder, Renal Disease, Other (See Below) Other Genitourinary History: Stage III kidney disease Neurological History: Reports: CVA Psychiatric History: Reports: Dementia Endocrine/Metabolic History: Reports: Hypothyroidism Hematologic History: Reports: Anticoagulation Therapy, Blood Transfusion(s) Oncologic (Cancer) History: Reports: Colon - Infectious Disease History Infectious Disease History: Reports: Chicken Pox, Measles, Mumps - Past Surgical History HEENT Surgical History: Reports: Cataract Surgery, Oral Surgery Cardiovascular Surgical History: Reports: None Respiratory Surgical History: Reports: None GI Surgical History: Reports: Cholecystectomy, Colon, Colonoscopy, EGD, Esophageal Dilatation, Hernia, Inguinal, Other (See Below) Other GI Surgeries/Procedures: colon resection for CA Neurological Surgical History: Reports: None Social & Family History - Family History Family Medical History: Noncontributory - Caffeine Use Caffeine Use: Reports: Coffee H&P Review of Systems - Review of Systems: Review Of Systems: See Below General: Reports: Malaise, Weakness, Decreased Appetite, Weight Loss HEENT: Reports: No Symptoms Pulmonary: Reports: No Symptoms Cardiovascular: Reports: No Symptoms Gastrointestinal: Reports: Abdominal Pain, Anorexia, Distension. Denies: Difficulty Swallowing, Nausea, Vomiting Genitourinary: Reports: No Symptoms Musculoskeletal: Reports: No Symptoms Skin: Reports: No Symptoms Psychiatric: Reports: No Symptoms Neurological: Reports: No Symptoms Hematologic/Lymphatic: Reports: No Symptoms Immunologic: Reports: No Symptoms Exam - Exam Exam: See Below - Vital Signs Vital Signs: Last Vital Signs Temp 97.0 F 02/10/19 14:01 Pulse 77 02/10/19 17:38 Resp 16 02/10/19 16:17 BP 174/83 H 02/10/19 17:38 Pulse Ox 100 02/10/19 17:38 Weight: 176 lb - Exam Quality Assessment: DVT Prophylaxis General: Alert, Oriented, Cooperative, Moderate Distress HEENT: Conjunctiva Clear, Hearing Intact, Normal Nasal Septum, Posterior Pharynx Clear, Pupils Equal. No: Mucosa Moist & Cocoa Neck: Supple, Trachea Midline, +2 Carotid Pulse wo Bruit Lungs: Clear to Auscultation, Normal Respiratory Effort Cardiovascular: Regular Rate, Regular Rhythm, Normal S1, Normal S2. No: Systolic Murmur, Diastolic Murmur GI/Abdominal Exam: Soft, Non-Tender, No Organomegaly, No Distention Back Exam: Normal Inspection, Full Range of Motion Extremities: Non-Tender, No Pedal Edema Skin: Warm, Dry, Intact Neurological: Cranial Nerves Intact, Strength Equal Bilateral, Normal Speech, Normal Tone, Sensation Intact. No: Focal Deficit Neuro Extensive - Mental Status: Alert, Oriented x3, Normal Mood/Affect, Normal Cognition, Memory Intact - Patient Data Lab Results Last 24 hrs: Laboratory Results - last 24 hr 02/10/19 02/10/19 02/10/19 Range/Units 15:09 15:09 15:09 WBC 7.3 (4.5-11.0) K/uL RBC 3.77 L (4.30-5.90) M/uL Hgb 10.8 L (12.0-15.0) g/dL Hct 33.8 L (40.0-54.0) % MCV 90 (80-98) fL MCH 29 (27-31) pg MCHC 32 (32-36) % Plt Count 240 (150-400) K/uL Neut % (Auto) 71 H (36-66) % Lymph % (Auto) 15 L (24-44) % Dixie % (Auto) 14 H (2-6) % Eos % (Auto) 0 L (2-4) % Baso % (Auto) 0 (0-1) % Sodium 136 L (140-148) mmol/L Potassium 4.4 (3.6-5.2) mmol/L Chloride 101 (100-108) mmol/L Carbon Dioxide 26 (21-32) mmol/L Anion Gap 13.4 (5.0-14.0) mmol/L BUN 30 H D (7-18) mg/dL Creatinine 2.1 H (0.8-1.3) mg/dL Est Cr Clr Drug Dosing 25.11 mL/min Estimated GFR (MDRD) 30 L (>60) Glucose 103 (74-106) mg/dL Calcium 8.6 (8.5-10.1) mg/dL Total Bilirubin 0.9 (0.2-1.0) mg/dL AST 60 H (15-37) U/L ALT 36 (12-78) U/L Alkaline Phosphatase 440 H D (46-116) U/L C-Reactive Protein 9.78 H (0.0-0.3) mg/dL Total Protein 7.3 (6.4-8.2) g/dL Albumin 2.9 L (3.4-5.0) g/dL Globulin 4.4 H (2.3-3.5) g/dL Albumin/Globulin Ratio 0.7 L (1.2-2.2) Lipase (73-393) U/L Urine Color (YELLOW) Urine Appearance (CLEAR) Urine pH (5.0-8.0) Ur Specific Randall (1.008-1.030) Urine Protein (NEGATIVE) mg/dL Urine Glucose (UA) (NEGATIVE) mg/dL Urine Ketones (NEGATIVE) mg/dL Urine Occult Blood (NEGATIVE) Urine Nitrite (NEGATIVE) Urine Bilirubin (NEGATIVE) Urine Urobilinogen (0.2-1.0) EU/dL Ur Leukocyte Esterase (NEGATIVE) Urine RBC (0-5) Urine WBC (0-5) Ur Epithelial Cells Amorphous Sediment Urine Bacteria Urine Mucus Urine Other 02/10/19 02/10/19 Range/Units 15:29 17:32 WBC (4.5-11.0) K/uL RBC (4.30-5.90) M/uL Hgb (12.0-15.0) g/dL Hct (40.0-54.0) % MCV (80-98) fL MCH (27-31) pg MCHC (32-36) % Plt Count (150-400) K/uL Neut % (Auto) (36-66) % Lymph % (Auto) (24-44) % Dixie % (Auto) (2-6) % Eos % (Auto) (2-4) % Baso % (Auto) (0-1) % Sodium (140-148) mmol/L Potassium (3.6-5.2) mmol/L Chloride (100-108) mmol/L Carbon Dioxide (21-32) mmol/L Anion Gap (5.0-14.0) mmol/L BUN (7-18) mg/dL Creatinine (0.8-1.3) mg/dL Est Cr Clr Drug Dosing mL/min Estimated GFR (MDRD) (>60) Glucose (74-106) mg/dL Calcium (8.5-10.1) mg/dL Total Bilirubin (0.2-1.0) mg/dL AST (15-37) U/L ALT (12-78) U/L Alkaline Phosphatase (46-116) U/L C-Reactive Protein (0.0-0.3) mg/dL Total Protein (6.4-8.2) g/dL Albumin (3.4-5.0) g/dL Globulin (2.3-3.5) g/dL Albumin/Globulin Ratio (1.2-2.2) Lipase 174 (73-393) U/L Urine Color Yellow (YELLOW) Urine Appearance Clear (CLEAR) Urine pH 6.0 (5.0-8.0) Ur Specific [place] 1.020 (1.008-1.030) Urine Protein 30 H (NEGATIVE) mg/dL Urine Glucose (UA) Negative (NEGATIVE) mg/dL Urine Ketones Negative (NEGATIVE) mg/dL Urine Occult Blood Negative (NEGATIVE) Urine Nitrite Negative (NEGATIVE) Urine Bilirubin Negative (NEGATIVE) Urine Urobilinogen 0.2 (0.2-1.0) EU/dL Ur Leukocyte Esterase Negative (NEGATIVE) Urine RBC 0-5 (0-5) Urine WBC 0-5 (0-5) Ur Epithelial Cells Few Amorphous Sediment Not seen Urine Bacteria Few Urine Mucus Moderate Urine Other Result Diagrams: 02/10/19 15:09 02/10/19 15:09 Sepsis Event Note - Evaluation Sepsis Screening Result: No Definite Risk - Focused Exam Vital Signs: Vital Signs Temp Pulse Resp BP Pulse Ox 02/10/19 17:38 77 174/83 H 100 02/10/19 16:17 75 16 157/79 H 98 02/10/19 15:03 76 138/82 94 L 02/10/19 14:01 97.0 F 81 16 154/84 H 96 02/10/19 13:32 97.0 F 81 16 154/84 H 96 Date Exam was Performed: 02/10/19 Time Exam was Performed: 18:31 *Q Meaningful Use (ADM) - VTE Risk Assess *Q Each Risk Factor Represents 1 Point: None Total Score 1 Point Risk Factors: 0 Each Risk Factor Represents 2 Points: Malignancy (present or previous) Total Score 2 Point Risk Factors: 2 Each Risk Factor Represents 3 Points: Age 75 Years or Greater Total Score 3 Point Risk Factors: 3 Each Risk Factor Represents 5 Points: None Total Score 5 Point Risk Factors: 0 Venous Thromboembolism Risk Factor Score *Q: 5 Problem List Initiated/Reviewed/Updated: Yes Orders Last 24hrs: Active Orders 24 hr Category Date Time Status Patient Status Manage Transfer [TRANSFER] Routine ADT 02/10/19 18:20 Ordered RT Aerosol Therapy [RC] ASDIRECTED Care 02/10/19 14:58 Active Sodium Chloride 0.9% [Normal Saline] 1,000 ml Med 02/10/19 15:45 Active IV ASDIRECTED Resuscitation Status Routine Resus Stat 02/10/19 18:23 Ordered Medication Orders Sodium Chloride (Normal Saline) 1,000 mls @ 500 mls/hr IV ASDIRECTED IVELISSE Last Admin: 02/10/19 16:13 Dose: 500 mls/hr Assessment/Plan Comment:: ASSESSMENT AND PLAN METASTATIC COLON CANCER-multiple liver mets identified on CT scan of the abdomen. Diagnosed with colon cancer approximately 1 year ago and underwent surgical resection. He opted not to pursue further treatment. Is in time he still does not want further treatment and would like to be treated for comfort only. -Pain and nausea medication as needed -Hospice consult PALLIATIVE CARE-he does not want further aggressive interventions or evaluation MAINTENANCE ISSUES -DVT prophylaxis; current therapy with Eliquis should provide adequate DVT prophylaxis -GI prophylaxis; continue outpatient PPI therapy -Serrano catheter; not indicated -Nutrition; regular diet -Nicotine dependence; not required CODE STATUS-FULL CODE, further discussion concerning CODE STATUS in a.m. ADMISSION STATUS-patient will be admitted to inpatient status, expect at least a 2 night hospital stay for evaluation and management of problems as outlined above. At the time of this admission I do not reasonably expected evaluation and management of this problem will require more than a 96 hour hospital stay. DISPOSITION-anticipate discharge to home after the hospital stay. PRIMARY CARE PROVIDER-Dr. Madsen - Mortality Measure Prognosis:: Poor
[2019-02-10] MEDS ORDERED: HYDROmorphone 0.5 MG/0.5 ML Syringe IVPUSH PRN (18:40)
[2019-02-10] MEDS ORDERED: Sodium Chloride 0.9% 10 ML Syringe FLUSH PRN (18:40)
[2019-02-10] MEDS ORDERED: oxyCODONE 5 MG Tab PO PRN (18:40)
[2019-02-10] MEDS ORDERED: Ondansetron 4 MG/2 ML SDV IV PRN (18:40)
[2019-02-10] MEDS ORDERED: Acetaminophen 325 MG Tab PO PRN (18:40)
[2019-02-10] MEDS: Sodium Chloride 0.9% 1,000 ML IV SCH (19:23)
[2019-02-10] MEDS: Pantoprazole 40 MG Tab.CR PO SCH (20:04)
[2019-02-10] MEDS: Apixaban 2.5 MG Tab (PTOM) PO SCH (20:07)
[2019-02-10] MEDS: Pantoprazole 40 MG Tab.CR (PTOM) PO SCH (20:12)
[2019-02-10] MEDS ORDERED: Apixaban 2.5 MG Tab PO SCH (21:00)
[2019-02-11] MEDS: Sodium Chloride 0.9% 1,000 ML IV SCH (03:03)
[2019-02-11 07:19] VITALS: BP 164/76; PULSE 81
[2019-02-11] MEDS: Pantoprazole 40 MG Tab.CR PO SCH (08:23)
[2019-02-11] MEDS ORDERED: Apixaban 2.5 MG Tab (PTOM) PO SCH (09:00)
[2019-02-11] MEDS ORDERED: Levothyroxine 25 MCG Tab PO SCH (09:00)
[2019-02-11] MEDS ORDERED: AMLODIPINE 2.5 MG PO SCH (09:00)
[2019-02-11] MEDS ORDERED: Magnesium Oxide 400 MG Tab PO SCH (09:00)
[2019-02-11] MEDS ORDERED: amLODIPine 5 MG Tab PO SCH (09:00)
[2019-02-11] MEDS: Pantoprazole 40 MG Tab.CR (PTOM) PO SCH (09:22)
[2019-02-11] MEDS: Apixaban 2.5 MG Tab (PTOM) PO SCH (09:33)
[2019-02-11] MEDS ORDERED: LEVOTHYROXINE 75MCG TAB (PTOM) PO SCH (11:00)
--- NOTE | 2019-02-11 11:35 | PCM.DCSUM1 ---
Discharge Summary - Hospital Course Brief History: Mr. 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 - Discharge Data Discharge Date: 02/11/19 Discharge Disposition: DC/Tfer to Hospice - Home 50 Condition: Poor - Referral to Home Health Primary Care Physician: Naren Madsen MD - Discharge Diagnosis/Problem(s) (1) Abdominal pain SNOMED Code(s): 39902142 ICD Code: R10.9 - UNSPECIFIED ABDOMINAL PAIN Status: Acute Current Visit : Yes (2) Colon adenocarcinoma SNOMED Code(s): 825409500 ICD Code: C18.9 - MALIGNANT NEOPLASM OF COLON, UNSPECIFIED Status: Acute Current Visit: Yes - Patient Summary/Data Hospital Course: Mr. Awan is an 88-year-old gentleman who was admitted to observation status through the emergency department for management of pain secondary to metastatic colon cancer. He was diagnosed with colon cancer approximately 1 year ago and underwent surgical resection. At that time there was no evidence of metastatic disease to the liver but several lymph nodes obtained during surgery were found to be positive. At that time he opted not to proceed with further treatment including chemotherapy. He had done well until the past month when he has been losing weight with decrease in appetite, bloating, and right upper quadrant abdominal pain. Because of weakness and pain he was brought into the emergency department for further evaluation today. CT scan of the abdomen and pelvis shows significant metastatic disease in the liver. He still does not want aggressive interventions and would like to be treated for comfort. He was given IV fluids for hydration as well as pain and nausea medication as needed. By the following morning he reported pain related to activity but otherwise feeling fairly comfortable while at rest. He would like to be discharged home and has requested hospice consult and probable hospice admission. Activity will be as tolerated and he will resume his usual diet. He will have been a prescription for oxycodone as needed for pain at home. - Patient Instructions Diet: Usual Diet as Tolerated Activity: As Tolerated Other/Special Instructions: Admit to hospice after discharge from the hospital. - Discharge Plan *PRESCRIPTION DRUG MONITORING PROGRAM REVIEWED*: Not Applicable *COPY OF PRESCRIPTION DRUG MONITORING REPORT IN PATIENT SOL: Not Applicable Prescriptions/Med Rec: oxyCODONE 5 mg PO Q4H PRN #30 tablet PRN Reason: Pain (Moderate 4-6) Home Medications: Home Meds Apixaban [Eliquis] 2.5 mg PO BID 09/29/18 [History] Levothyroxine [Synthroid] 75 mcg PO DAILY 09/29/18 [History] Magnesium Oxide 400 mg PO DAILY 09/29/18 [History] amLODIPine Besylate [Norvasc] 2.5 mg PO DAILY 09/29/18 [History] Pantoprazole Sodium [Protonix] 40 mg PO DAILY 10/01/18 [History] oxyCODONE 5 mg PO Q4H PRN #30 tablet 02/11/19 [Rx] Referrals: Naren Madsen MD [Primary Care Provider] - - Discharge Summary/Plan Comment DC Time >30 min.: No - Patient Data Vitals - Most Recent: Last Vital Signs Temp 97.7 F 02/11/19 07:00 Pulse 81 02/11/19 07:00 Resp 18 02/11/19 07:00 BP 164/76 H 02/11/19 07:00 Pulse Ox 95 02/11/19 07:00 Weight - Most Recent: 169 lb I&O - Last 24 hours: Intake & Output 02/10/19 02/11/19 02/11/19 22:59 06:59 14:59 Intake Total 280 1529 340 Output Total 200 675 Balance 280 1329 -335 Lab Results - Last 24 hrs: Laboratory Results - last 24 hr 02/10/19 02/10/19 02/10/19 Range/Units 15:09 15:09 15:09 WBC 7.3 (4.5-11.0) K/uL RBC 3.77 L (4.30-5.90) M/uL Hgb 10.8 L (12.0-15.0) g/dL Hct 33.8 L (40.0-54.0) % MCV 90 (80-98) fL MCH 29 (27-31) pg MCHC 32 (32-36) % Plt Count 240 (150-400) K/uL Neut % (Auto) 71 H (36-66) % Lymph % (Auto) 15 L (24-44) % [place] % (Auto) 14 H (2-6) % Eos % (Auto) 0 L (2-4) % Baso % (Auto) 0 (0-1) % Sodium 136 L (140-148) mmol/L Potassium 4.4 (3.6-5.2) mmol/L Chloride 101 (100-108) mmol/L Carbon Dioxide 26 (21-32) mmol/L Anion Gap 13.4 (5.0-14.0) mmol/L BUN 30 H D (7-18) mg/dL Creatinine 2.1 H (0.8-1.3) mg/dL Est Cr Clr Drug Dosing 25.11 mL/min Estimated GFR (MDRD) 30 L (>60) Glucose 103 (74-106) mg/dL Calcium 8.6 (8.5-10.1) mg/dL Total Bilirubin 0.9 (0.2-1.0) mg/dL AST 60 H (15-37) U/L ALT 36 (12-78) U/L Alkaline Phosphatase 440 H D (46-116) U/L C-Reactive Protein 9.78 H (0.0-0.3) mg/dL Total Protein 7.3 (6.4-8.2) g/dL Albumin 2.9 L (3.4-5.0) g/dL Globulin 4.4 H (2.3-3.5) g/dL Albumin/Globulin Ratio 0.7 L (1.2-2.2) Lipase (73-393) U/L Urine Color (YELLOW) Urine Appearance (CLEAR) Urine pH (5.0-8.0) Ur Specific [place] (1.008-1.030) Urine Protein (NEGATIVE) mg/dL Urine Glucose (UA) (NEGATIVE) mg/dL Urine Ketones (NEGATIVE) mg/dL Urine Occult Blood (NEGATIVE) Urine Nitrite (NEGATIVE) Urine Bilirubin (NEGATIVE) Urine Urobilinogen (0.2-1.0) EU/dL Ur Leukocyte Esterase (NEGATIVE) Urine RBC (0-5) Urine WBC (0-5) Ur Epithelial Cells Amorphous Sediment Urine Bacteria Urine Mucus Urine Other 02/10/19 02/10/19 Range/Units 15:29 17:32 WBC (4.5-11.0) K/uL RBC (4.30-5.90) M/uL Hgb (12.0-15.0) g/dL Hct (40.0-54.0) % MCV (80-98) fL MCH (27-31) pg MCHC (32-36) % Plt Count (150-400) K/uL Neut % (Auto) (36-66) % Lymph % (Auto) (24-44) % [place] % (Auto) (2-6) % Eos % (Auto) (2-4) % Baso % (Auto) (0-1) % Sodium (140-148) mmol/L Potassium (3.6-5.2) mmol/L Chloride (100-108) mmol/L Carbon Dioxide (21-32) mmol/L Anion Gap (5.0-14.0) mmol/L BUN (7-18) mg/dL Creatinine (0.8-1.3) mg/dL Est Cr Clr Drug Dosing mL/min Estimated GFR (MDRD) (>60) Glucose (74-106) mg/dL Calcium (8.5-10.1) mg/dL Total Bilirubin (0.2-1.0) mg/dL AST (15-37) U/L ALT (12-78) U/L Alkaline Phosphatase (46-116) U/L C-Reactive Protein (0.0-0.3) mg/dL Total Protein (6.4-8.2) g/dL Albumin (3.4-5.0) g/dL Globulin (2.3-3.5) g/dL Albumin/Globulin Ratio (1.2-2.2) Lipase 174 (73-393) U/L Urine Color Yellow (YELLOW) Urine Appearance Clear (CLEAR) Urine pH 6.0 (5.0-8.0) Ur Specific [place] 1.020 (1.008-1.030) Urine Protein 30 H (NEGATIVE) mg/dL Urine Glucose (UA) Negative (NEGATIVE) mg/dL Urine Ketones Negative (NEGATIVE) mg/dL Urine Occult Blood Negative (NEGATIVE) Urine Nitrite Negative (NEGATIVE) Urine Bilirubin Negative (NEGATIVE) Urine Urobilinogen 0.2 (0.2-1.0) EU/dL Ur Leukocyte Esterase Negative (NEGATIVE) Urine RBC 0-5 (0-5) Urine WBC 0-5 (0-5) Ur Epithelial Cells Few Amorphous Sediment Not seen Urine Bacteria Few Urine Mucus Moderate Urine Other Med Orders - Current: Current Medications Acetaminophen (Tylenol) 650 mg PO Q4H PRN PRN Reason: Pain (Mild 1-3)/fever Apixaban (Eliquis) 2.5 mg PO BID [facility] Last Admin: 02/11/19 09:33 Dose: Not Given Hydromorphone HCl (Dilaudid) 0.5 mg IVPUSH Q2H PRN PRN Reason: Pain (severe 7-10) Sodium Chloride (Normal Saline) 1,000 mls @ 125 mls/hr IV ASDIRECTED [facility] Last Admin: 02/11/19 03:03 Dose: 125 mls/hr Magnesium Oxide (Magnesium Oxide) 400 mg PO DAILY [facility] Last Admin: 02/11/19 09:33 Dose: Not Given Ondansetron HCl (Zofran) 4 mg IV Q4H PRN PRN Reason: Nausea/Vomiting Oxycodone HCl (Oxycodone) 5 mg PO Q4H PRN PRN Reason: Pain (moderate 4-6) Pantoprazole Sodium (Protonix) 40 mg PO ACBREAKFAST [facility] Last Admin: 02/11/19 09:22 Dose: Not Given Levothyroxine 75mcg (Tab (Ptom)) 0 each PO ACBREAKFAST [facility] Amlodipine 2.5mg Tab ((Ptom)) 0 each PO DAILY [facility] Last Admin: 02/11/19 09:29 Dose: 1 each Sodium Chloride (Saline Flush) 10 ml FLUSH ASDIRECTED PRN PRN Reason: Keep Vein Open Discontinued Medications Albuterol/Ipratropium (Duoneb 3.0-0.5 Mg/3 Ml) 3 ml NEB ONETIME ONE Stop: 02/10/19 14:59 Last Admin: 02/10/19 15:17 Dose: Not Given Apixaban (Eliquis) 2.5 mg PO BID [facility] Last Admin: 02/10/19 20:04 Dose: Not Given Hydromorphone HCl (Dilaudid) 0.5 mg IVPUSH ONETIME ONE Stop: 02/10/19 15:44 Last Admin: 02/11/19 05:31 Dose: Not Given Sodium Chloride (Normal Saline) 1,000 mls @ 500 mls/hr IV ASDIRECTED [facility] Last Admin: 02/10/19 16:13 Dose: 500 mls/hr Ondansetron HCl (Zofran) 4 mg IVPUSH ONETIME ONE Stop: 02/10/19 15:44 Last Admin: 02/11/19 05:31 Dose: Not Given Pantoprazole Sodium (Protonix) 40 mg PO ACBREAKFAST [facility] Last Admin: 02/11/19 08:23 Dose: Not Given Prednisone (Prednisone) 30 mg PO ONETIME ONE Stop: 02/10/19 14:59 Last Admin: 02/10/19 15:17 Dose: Not Given - Exam General: Reports: Alert, Oriented, Cooperative, Mild Distress Lungs: Reports: Clear to Auscultation, Normal Respiratory Effort Cardiovascular: Reports: Regular Rate, Regular Rhythm, No Murmurs GI/Abdominal Exam: Soft, No Organomegaly, Distended, Tender. No: Guarding, Rigid, Rebound *Q Meaningful Use (DIS) - VTE *Q VTE Pharmacological Contraindications *Q: High INR Value
== END 2019-02-11 12:20 | disposition hospice, home (50) ==
LOC: JP.ED 13:05 → JP.MS 18:20
PROVIDERS: ADMIT Hospitalist; ATTEND Hospitalist
DX: C18.9 Malignant neoplasm of colon, unspecified (principal); C78.7 Secondary malignant neoplasm of liver and intrahepatic bile duct; Z90.49 Acquired absence of other specified parts of digestive tract
CPT/HCPCS: 36415; 74176; 80053; 81001; 83690; 85025; 86140; A9270; J7030; 99285-25